=== PATIENT | female | born 1965 | race Hispanic/Latino ===

== ENCOUNTER 2017-10-21 11:17 | Emergency (ER) | payer BC ==
[~2017-10-21] VITALS: Ht 154.9 cm; Wt 104.3 kg
[~2017-10-21 11:17] MED LIST: BUPROPION HCL100 MG PO; METFORMIN HCL500 MG PO; NORCO 7.5-3251 EACH PO; SEROQUEL100 MG PO; TYLENOL EXTRA500 MG PO; clonazepam PO; cymbalta PO
--- OUTSIDE RECORDS SUMMARY | 2017-10-21 11:20 | XMS REPORT | Clinical Summary ---
Author Author [facility] Address Unknown Phone Unavailable Care Team Providers Care Back Tacker Name Role Phone Lucio Hardin MD PCP Allergies No Known Allergies Current Medications Prescription Sig. Disp. Refills Start End Date Status Date metFORMIN (GLUCOPHAGE) 02/17/20 Active 500 MG tablet 16 traMADol (ULTRAM) 50 mg 02/24/20 Active tablet 16 buPROPion SR (WELLBUTRIN 02/24/20 Active SR) 150 MG 12 hr tablet 16 TRULICITY 1.5 mg/0.5 mL 02/15/20 Active pen injector 16 QUEtiapine (SEROquel) 100 01/16/20 Active MG tablet 16 acetaminophen-codeine Take 1-2 tablets by mouth 15 tablet 0 02/20/20 02/25/20 (TYLENOL WITH CODEINE #3) every 6 (six) hours as 17 17 300-30 mg per tablet needed for moderate pain for up to 5 days. Active Problems Problem Noted Date Sprain of medial collateral ligament of left knee 03/03/2016 Left knee pain 02/25/2016 Encounters Date Type Specialty Care Team Description 10/16/2017 Emergency Emergency Medicine Tremaine Ty Right lower quadrant - Endy Fregoso MD abdominal pain (Primary 10/17/2017 Dx) 02/19/2017 Emergency Emergency Medicine Sreekanth Ron MD Acute bilateral low back pain without sciatica (Primary Dx) after 10/20/2016 Family History Medical History Relation Name Comments Diabetes Father Heart disease Father Diabetes Mother Hyperlipidemia Mother Hypertension Mother Relation Name Status Comments Father Mother Social History Tobacco Use Types Packs/Day Years Used Date Never Smoker Alcohol Use Drinks/Week oz/Week Comments No Sex Assigned at Date Recorded Not on file Last Filed Vital Signs Vital Sign Reading Time Taken Blood Pressure 119/65 10/16/2017 8:32 PM CDT Pulse 82 10/16/2017 8:32 PM CDT Temperature 36.1 C (97 F) 10/16/2017 8:32 PM CDT Respiratory Rate 17 10/16/2017 8:32 PM CDT Oxygen Saturation 100% 10/16/2017 8:32 PM CDT Inhaled Oxygen - - Concentration Weight 83.9 kg (185 lb) 02/19/2017 6:47 PM CDT Height 152.4 cm (5') 10/16/2017 8:32 PM CDT Body Mass Index 36.13 02/19/2017 6:47 PM CDT Plan of Treatment Health Maintenance Due Date Last Done Comments PAP SMEAR 1987 COLONOSCOPY 2016 MAMMOGRAM 2016 INFLUENZA VACCINE 01/31/2018 Results * Urinalysis screen and microscopy, with reflex to culture (10/16/2017 10:24 PM) Only the most recent of 2 results within the time period is included. Component Value Ref Range Specimen site Clean catch Color, UA Straw Appearance, UA Clear Specific gravity, UA 1.003 1.001 - 1.035 pH, UA 6.0 5.0 - 8.5 Protein, UA Negative Negative Glucose, UA Negative Negative Ketones, UA Negative Negative Bilirubin, UA Negative Negative Blood, UA Negative Negative Nitrite, UA Negative Negative Urobilinogen, UA Negative <2.0 Leukocyte esterase, UA Negative Negative Epithelial cells, UA Few /HPF WBC, UA 1 0 - 5 /HPF RBC, UA 3 0 - 5 /HPF Bacteria, UA Trace None seen Yeast, UA None seen Yeast with pseudohyphae, None seen UA Specimen Performing Laboratory Urine [facility] DEPARTMENT OF PATHOLOGY AND GENOMIC MEDICINE [address] [place] [address] * hCG qualitative, urine screen (10/16/2017 10:24 PM) Component Value Ref Range hCG qualitative, urine Negative Negative Comment: The manufacturers stated sensitivity of HcG test for serum is >/=10 mIU/ml and urine is >/=20mIU/ml. Specimen Performing Laboratory Urine [facility] DEPARTMENT OF PATHOLOGY AND GENOMIC MEDICINE [address] [place] [address] * Estimated GFR (10/16/2017 9:05 PM) Only the most recent of 2 results within the time period is included. Component Value Ref Range GFR Non Af Amer 66 mL/min/1.73 m2 GFR Af Amer 80 mL/min/1.73 m2 Comment: Chronic kidney disease: <60 mL/min/1.73m2 Kidney failure: <15 mL/min/1.73m2 The estimated GFR is calculated from the IDMS-traceable Modification of Diet in Renal Disease Equation. The accuracy of the calculation is poor when the creatinine is normal. Calculated values >90 mL/min/1.73m2 are not reported. This equation has not been validated in children (<18 years), women, the elderly (>70 years), or ethnic groups other than Caucasians and Americans. Specimen Performing Laboratory Plasma specimen [facility] DEPARTMENT OF PATHOLOGY AND GENOMIC MEDICINE [address] [place] [address] * CBC with platelet and differential (10/16/2017 9:05 PM) Only the most recent of 2 results within the time period is included. Component Value Ref Range WBC 7.0 4.2 - 11.0 k/uL RBC 3.77 (L) 4.04 - 5.86 m/uL HGB 9.9 (L) 11.5 - 15.3 g/dL HCT 31.2 (L) 34.0 - 45.0 % MCV 82.8 80.0 - 98.0 fL MCH 26.3 (L) 27.0 - 34.0 pg MCHC 31.7 31.5 - 36.5 g/dL RDW - SD 40.4 37.0 - 51.0 fL MPV 9.0 7.4 - 10.4 fL Platelet count 321 150 - 400 k/uL Nucleated RBC 0.00 /100 WBC Neutrophils 62.0 36.0 - 66.0 % Lymphocytes 29.1 24.0 - 44.0 % Monocytes 5.2 0.0 - 6.0 % Eosinophils 2.2 0.0 - 6.0 % Basophils 0.9 0.0 - 1.2 % Immature granulocytes 0.6 0.0 - 1.0 % Specimen Performing Laboratory Blood [facility] DEPARTMENT OF PATHOLOGY AND GENOMIC MEDICINE [address] [place] [address] * Lipase level (10/16/2017 9:05 PM) Component Value Ref Range Lipase 270 (H) 65 - 230 U/L Specimen Performing Laboratory Plasma specimen [facility] DEPARTMENT OF PATHOLOGY AND GENOMIC MEDICINE [address] [place] [address] * Comprehensive metabolic panel (10/16/2017 9:05 PM) Only the most recent of 2 results within the time period is included. Component Value Ref Range Sodium 133 (L) 135 - 150 mEq/L Potassium 4.6 3.5 - 5.0 mEq/L Chloride 96 (L) 100 - 109 mEq/L CO2 28 24 - 32 mmol/L Anion gap 9 7 - 15 mEq/L Comment: Starting from October , anion gap calculation no longer incorporates potassium. Please note the change. BUN 15 7 - 18 mg/dL Creatinine 0.9 0.8 - 1.5 mg/dL Glucose 91 65 - 100 mg/dL Calcium 9.3 8.6 - 10.7 mg/dL Protein 7.6 6.3 - 8.2 g/dL Albumin 3.6 3.2 - 5.0 g/dL A/G ratio 0.9 0.7 - 3.8 Alkaline phosphatase 123 (H) 30 - 120 U/L AST 25 15 - 37 U/L ALT 34 30 - 65 U/L Total bilirubin 0.4 0.2 - 1.2 mg/dL Specimen Performing Laboratory Plasma specimen [facility] DEPARTMENT OF PATHOLOGY AND GENOMIC MEDICINE [address] [place] [address] * CT Abdomen Pelvis Wo Contrast (02/19/2017 8:16 PM) Specimen Performing Laboratory [address] [address] Narrative EXAMINATION:CT ABDOMEN PELVIS WO CONTRAST CLINICAL HISTORY:back paindysuria TECHNIQUE: Multiple axial images of the abdomen and pelvis were obtained without intravenous administration of iodinated contrast. Sagittal and coronal computerized reformatted images were also obtained. The lack of intravenous contrast reduces the sensitivity of detecting solid organ disease.CT imaging was performed with iterative reconstruction technique and/or automated exposure control to reduce radiation dose. COMPARISON:None. FINDINGS: Abdomen: Calcified right lower lung granuloma is seen. The liver, pancreas, spleen, and adrenals are normal in appearance. There is a horseshoe kidney. Patient is status post cholecystectomy. Anastomotic sutures in bowel are seen in the left upper quadrant. Postoperative changes are seen in the proximal stomach. Pelvis: The bladder is distended. No enlarged pelvic lymph node is seen. Appendix is within normal limits. IMPRESSION: No definite acute process identified. Horseshoe kidney. Postoperative changes. [facility]-[id number] Procedure Note Hm Interface, Radiology Results Incoming - 02/19/2017 8:22 PM CDT EXAMINATION: CT ABDOMEN PELVIS WO CONTRAST CLINICAL HISTORY: back pain dysuria TECHNIQUE: Multiple axial images of the abdomen and pelvis were obtained without intravenous administration of iodinated contrast. Sagittal and coronal computerized reformatted images were also obtained. The lack of intravenous contrast reduces the sensitivity of detecting solid organ disease.CT imaging was performed with iterative reconstruction technique and/or automated exposure control to reduce radiation dose. COMPARISON: None. FINDINGS: Abdomen: Calcified right lower lung granuloma is seen. The liver, pancreas, spleen, and adrenals are normal in appearance. There is a horseshoe kidney. Patient is status post cholecystectomy. Anastomotic sutures in bowel are seen in the left upper quadrant. Postoperative changes are seen in the proximal stomach. Pelvis: The bladder is distended. No enlarged pelvic lymph node is seen. Appendix is within normal limits. IMPRESSION: No definite acute process identified. Horseshoe kidney. Postoperative changes. [facility]-[id number] after 10/20/2016 Insurance Payer Benefit Subscriber ID Type Phone Address Plan / Group BCBS DUNCAN xxxxxxxxxxxxxx O [facility] Home:
[2017-10-21] MEDS ORDERED: KETOROLAC TROMETHAMINE 60 MG/2 ML VIAL IM ONE (12:30)
--- NOTE | 2017-10-21 12:30 | Diagnostic Imaging Report ---
EXAMINATION: ABDOMEN ACUTE SERIES W/PA CXR INDICATION: Abdominal pain COMPARISON: Chest x-ray 08/01/2012 FINDINGS: TUBES and LINES: None. LUNGS: Lungs are well inflated. Lungs are clear. There is no evidence of pneumonia or pulmonary edema. PLEURA: No pleural effusion or pneumothorax. HEART AND MEDIASTINUM: The cardiomediastinal silhouette is unremarkable. BONES AND SOFT TISSUES: No acute osseous lesion. Anterior cervical fusion plate. Soft tissues are unremarkable. ABDOMEN: No free air under the diaphragm. There are cholecystectomy clips. Positive oral contrast within the transverse colon extending to the rectum. Moderate amount of stool. IMPRESSION: 1. No acute thoracic abnormality. 2. Moderate stool within the colon with positive oral contrast and transverse colon extending to the rectum. Signed by: Dr. Anthony Ha M.D. on 10/21/2017 12:27 PM
[2017-10-21] MEDS ORDERED: LIBRAX CAPSULE1 EACH PO (13:29)
[2017-10-21] MEDS ORDERED: GOLYTELY SOLU4000 ML PO (13:29)
== END 2017-10-21 14:12 | disposition home or self-care (01) ==
LOC: ER 11:17
DX: R10.84 Generalized abdominal pain (principal); K59.00 Constipation, unspecified
CPT/HCPCS: 74022; 99283; J1885

== ENCOUNTER 2018-12-25 11:56 | Inpatient (IN) | payer BC ==
[~2018-12-25] VITALS: Ht 152.4 cm; Wt 96.3 kg
[~2018-12-25 11:56] MED LIST changes: +GOLYTELY SOLU4000 ML PO; +LIBRAX CAPSULE1 EACH PO
--- OUTSIDE RECORDS SUMMARY | 2018-12-25 12:00 | XMS REPORT | Clinical Summary ---
Author Author [facility] Address Unknown Phone Unavailable Care Team Providers Care Yard Inspector Name Role Phone Raymundo Hardin MD PCP Allergies No Known Allergies Medications End Date Status Medication Sig Dispensed Refills Start Date Active metFORMIN (GLUCOPHAGE) 0 500 MG tablet 6 Active traMADol (ULTRAM) 50 mg 0 tablet 6 Active buPROPion SR (WELLBUTRIN 0 SR) 150 MG 12 hr tablet 6 Active TRULICITY 1.5 mg/0.5 mL 0 pen injector 6 Active QUEtiapine (SEROquel) 100 0 MG tablet 6 Active Problems Problem Noted Date Sprain of medial collateral ligament of left knee 03/03/2016 Left knee pain 02/25/2016 Family History Medical History Relation Name Comments Diabetes Father Heart disease Father Diabetes Mother Hyperlipidemia Mother Hypertension Mother Relation Name Status Comments Father Mother Social History Date Tobacco Use Types Packs/Day Years Used Never Smoker Alcohol Use Drinks/Week oz/Week Comments No Sex Assigned at Date Recorded Not on file Industry Job Start Date Occupation Not on file Not on file Not on file Travel End Travel History Travel Start No recent travel history available. Last Filed Vital Signs Not on file Plan of Treatment Health Maintenance Due Date Last Done Comments BREAST CANCER SCREENING 2016 COLONOSCOPY SCREENING 2016 SHINGLES VACCINES (#1) 2016 INFLUENZA VACCINE 01/31/2019 Results Not on fileafter 12/24/2017 Insurance Type Payer Benefit Subscriber ID Effective Phone Address Plan / Dates Group PPO BCBS ANTHEM xxxxxxxxxxxxxx 2015-P [address] (Home) [place] [address] Advance Directives Patient has advance care planning documents on file. For more information, jessica busby contact: Smooth Jaramillo [address] [place] [address]
--- OUTSIDE RECORDS SUMMARY | 2018-12-25 12:01 | XMS REPORT ---
Author Author [facility] Address Unknown Phone Unavailable Care Team Providers Care Flat Folder Name Role Phone mAy TURNER Unavailable Unavailable Problems This patient has no known problems. Allergies, Adverse Reactions, Alerts This patient has no known allergies or adverse reactions. Medications This patient has no known medications. Results Test Description Test Time Test Comments Text Results Atomic Results Result Comments ABDOMEN ACUTE SERIES W/PA CXR [place] [address] Patient Name: BRENDA COCHRAN MR #: [id number] : 1965 Age/Sex: 52/F Req #: [id number] Adm Physician: Ordered by: ZAID TURNER MD Report #: [id number] Location: ER Room/Bed: Procedure: [id number] DX/ABDOMEN ACUTE SERIES W/PA CXR Exam Date: 10/21/17 Exam Time: 1155 REPORT STATUS: Signed EXAMINATION: ABDOMEN ACUTE SERIES W/PA CXR INDICATION: Abdominal pain COMPARISON: Chest x-ray 08/01/2012 FINDINGS: TUBES and LINES: None. LUNGS: Lungs are well inflated. Lungs are clear. There is no evidence of pneumonia or pulmonary edema. PLEURA: No pleural effusion or pneumothorax. HEART AND MEDIASTINUM: The cardiomediastinal silhouette is unremarkable. BONES AND SOFT TISSUES: No acute osseous lesion. Anterior cervical fusion plate. Soft tissues are unremarkable. ABDOMEN: No free air under the diaphragm. There are cholecystectomy clips. Positive oral contrast within the transverse colon extending to the rectum. Moderate amount of stool. IMPRESSION: 1. No acute thoracic abnormality. 2. Moderate stool within the colon with positive oral contrast and transverse colon extending to the rectum. Signed by: Dr. Misael White M.D. on 10/21/2017 12:27 PM Dictated By: MISAEL WHITE MD [id number] Transcribed By: LOGAN on 10/21/17 1227 COPY TO: ZAID TURNER MD
--- NOTE | 2018-12-25 12:06 | NUR ---
RCD PT DIRECT ADMISSION BY WHEEL CHAIR PT IS ALERT AND ORIENTED VITALS CHECKED PT C/O PAIN ON LEFT SIDE OF ABDOMEN SHE HAD BOWEL MOVEMENT TODAY ,IV STARTED ON RT AC WIT 20 G ,ADMISSION ASSESSMENT AND HISTORY AND FAMILY HISTORY DONE INSTRUCTED PT REGARDING HOSPITAL POLICY AND ROUTINE BED LOW AND LOCKED CALL LIGHT IN REACH
[2018-12-25 12:32] VITALS: BP 122/56
[2018-12-25 12:42] LABS: BASOPHILS % 0.8 % (0.0-1.0); EOSINOPHILS # (AUTO) 0.1 (0.0-0.4); EOSINOPHILS % 1.5 % (0.0-6.0); HEMATOCRIT 31.7 % (34.2-44.1); HEMOGLOBIN 10.1 g/dL (12.0-16.0); LYMPHOCYTES # (AUTO) 1.1 (1.0-3.2); LYMPHOCYTES % 20.6 % (18.0-39.1); MEAN CORPUSCULAR HEMOGLOBIN 25.8 pg (28-32); MEAN CORPUSCULAR HGB CONC 31.9 g/dL (31-35); MEAN CORPUSCULAR VOLUME 81.1 fL (81-99); MONOCYTES # (AUTO) 0.2 (0.2-0.8); NEUTROPHILS # (AUTO) 3.8 (2.1-6.9); NEUTROPHILS % 72.5 % (38.7-80.0); PLATELET COUNT 244 x10e3/uL (140-360); RED BLOOD COUNT 3.91 x10e6/uL (3.6-5.1); RED CELL DISTRIBUTION WIDTH 15.2 % (11.7-14.4)
[2018-12-25 13:10] LABS: ALANINE AMINOTRANSFERASE 55 IU/L (0-55); ALBUMIN 3.4 g/dL (3.5-5.0); ALBUMIN/GLOBULIN RATIO 1.3 (0.8-2.0); ALKALINE PHOSPHATASE 80 IU/L (40-150); BLOOD UREA NITROGEN 10 mg/dL (7-26); BUN/CREATININE RATIO 13 (6-25); CALCIUM 8.7 mg/dL (8.4-10.2); CARBON DIOXIDE 24 mmol/L (22-29); CREATININE, SERUM 0.77 mg/dL (0.57-1.11); EST GLOMERULAR FILTRATION RATE > 60 ML/MIN (60-); GLUCOSE 180 mg/dL (74-118)
[2018-12-25] MEDS: CEFEPIME 1GM/NS 0.9% 50 ML 50 ML IV SCH ×2 (13:11→21:00)
[2018-12-25] MEDS: SODIUM CHLORIDE 0.45% 1,000 ML IV SCH (13:11)
--- NOTE | 2018-12-25 13:21 | NUR ---
PT C/O PAIN ON ABDOMEN PAGED DR GAINES AND TALKED VELIA EXTRUSION PRESS SUPERVISOR GOT NEW ORDERS
[2018-12-25] MEDS: MORPHINE SULFATE INJ 4 MG/ML INJ 1ML IV PRN ×2 (13:33→20:17)
[2018-12-25 13:43] LABS: ANION GAP 12.9 mmol/L (8-16); CHLORIDE 105 mmol/L (98-107); POTASSIUM 3.9 mmol/L (3.5-5.1); SODIUM 137 mmol/L (136-145)
[2018-12-25] MEDS: METRONIDAZOLE 500MG/NS 100ML 100 ML IV SCH ×2 (14:00→21:30)
[2018-12-25] MEDS ORDERED: METRONIDAZOLE 500 MG TAB PO SCH (14:00)
[2018-12-25] MEDS ORDERED: CEFEPIME HCL 1 GM VIAL IV SCH (14:00)
[2018-12-25 14:38] VITALS: BP 122/56
[2018-12-25 14:49] VITALS: BP 122/56
[2018-12-25] MEDS ORDERED: DEXTROSE 50% SYRINGE 50 ML IV PRN (15:45)
[2018-12-25] MEDS: INSULIN REGULAR, HUMAN 100 UNIT/1 ML 3ML VIAL SQ SCH ×2 (16:30→20:03)
[2018-12-25] MEDS: FAMOTIDINE 20 MG TAB PO SCH (16:30)
[2018-12-25 16:33] VITALS: BP 114/57
[2018-12-25] MEDS ORDERED: ACETAMINOPHEN 325 MG TAB PO PRN (16:45)
[2018-12-25] MEDS ORDERED: HYDRALAZINE HCL 20 MG/ML VIAL IV PRN (16:45)
--- NOTE | 2018-12-25 17:00 | NUR ---
SCDS ON BOTH LEGS
--- NOTE | 2018-12-25 17:03 | NUR ---
RADIOLOGY REQUESTED TO XRAY ABDOMEN AND PELVIS FOR MORE CLARITY PAGED AND TALKED JESSENIA MANRIQUE GOT THE ORDER
[2018-12-25 17:10] LABS: BILIRUBIN,URINE NEGATIVE (NEGATIVE); CLARITY,URINE CLEAR (CLEAR); COLOR,URINE YELLOW (YELLOW); KETONES,URINE NEGATIVE (NEGATIVE); LEUKOCYTE ESTERASE ,URINE NEGATIVE (NEGATIVE); NITRITE,URINE NEGATIVE (NEGATIVE); PROTEIN,URINE DIPSTICK NEGATIVE (NEGATIVE); URINE UROBILINOGEN 0.2 mg/dL (0.2 - 1)
[2018-12-25 17:28] LABS: BACTERIA,URINE MODERATE /HPF; EPITHELIAL CELLS,URINE FEW /LPF
[2018-12-25] MEDS ORDERED: DIATRIZOATE MEGL/DIATRIZOA SOD 30 ML BTL PO ONE (17:35)
--- NOTE | 2018-12-25 18:52 | NUR ---
PT RESTING ON BED BED SIDE REPORT GIVEN TO ONCOMING NURSE
--- NOTE | 2018-12-25 18:54 | Diagnostic Imaging Report ---
EXAM: CT Abdomen and Pelvis WITH contrast December 25, 2018 INDICATION: Diverticulitis. Abdominal pain. COMPARISON: None. TECHNIQUE: Abdomen and pelvis were scanned utilizing a multidetector helical scanner from the lung base to the pubic symphysis after administration of IV contrast. Coronal and sagittal reformations were obtained. Routine protocol was performed. Scan was performed when during portal venous phase. IV CONTRAST: 100 mL of Isovue-370 ORAL CONTRAST: Gastrografin RADIATION DOSE: Total DLP: 664.8 mGy*cm Estimated effective dose: (DLP x 0.015 x size factor) mSv Dose modulation, iterative reconstruction and weight base adjustment of the MA/KV was utilized to reduce the patient dose to as low as reasonably achievable COMPLICATIONS: None FINDINGS: LINES and TUBES: None. LOWER THORAX: Unremarkable HEPATOBILIARY: No focal hepatic lesions. No biliary ductal dilation. GALLBLADDER: Cholecystectomy SPLEEN: No splenomegaly. PANCREAS: No focal masses or ductal dilatation. ADRENALS: No adrenal nodules KIDNEYS/URETERS: Horseshoe kidney. No hydronephrosis. No cystic or solid mass lesions. No stones. GI TRACT: No abnormal distention, wall thickening, or evidence of bowel obstruction. Scattered diverticulosis without evidence of diverticulitis. Postsurgical change to the stomach. PELVIC ORGANS/BLADDER: Unremarkable. LYMPH NODES: No lymphadenopathy. VESSELS: Unremarkable. PERITONEUM / RETROPERITONEUM: No free air or fluid. BONES: Scattered degenerative changes most pronounced at the lower lumbar spine. SOFT TISSUES: Unremarkable. IMPRESSION: 1. Scattered diverticulosis without evidence of diverticulitis. 2. Incidental horseshoe kidney. Signed by: Dr. Rohan Rivers M.D. on 12/25/2018 6:51 PM
--- NOTE | 2018-12-25 19:30 | NUR ---
RECEIVED PATIENT. PATIENT IS RESTING IN BED, AAOX3. RESP EVEN AND UNLABORED. NO ACUTE DISTRESS NOTED. PATIENT C/O PAIN TO LLQ, WILL MEDICATE PER MAR. FLUID IS INFUSING. FAMILY AT BED SIDE. CALL LIGHT WITHIN REACH. BED LOW/LOCKED. CONTINUE TO MONITOR CLOSELY
[2018-12-25] MEDS ORDERED: SODIUM CHLORIDE 0.9% 50ML 50 ML ONE (19:57)
[2018-12-25] MEDS ORDERED: IOPAMIDOL 370 MG/ML 200 ML INFUS..BTL INJ ONE (19:57)
[2018-12-25] MEDS: QUETIAPINE FUMARATE 100 MG TAB PO SCH (20:16)
[2018-12-25] MEDS: ONDANSETRON HCL INJ 2MG/ML 2ML 2 MG/ML VIAL IV PRN (20:17)
[2018-12-25 20:19] VITALS: BP 109/55
[2018-12-25 20:30] VITALS: BP 109/55
--- NOTE | 2018-12-25 21:35 | NUR ---
PATIENT C/O PAIN TO RIGHT AC IV. D/C IV. START NEW IV TO RIGHT FOREARM 20G. PATIENT TOLERATED WELL
[2018-12-26] VITALS (9 sets, daily range): BP systolic 93–119; BP diastolic 50–60
[2018-12-26] MEDS: SODIUM CHLORIDE 0.45% 1,000 ML IV SCH ×2 (02:01→14:00)
[2018-12-26] MEDS: MORPHINE SULFATE INJ 4 MG/ML INJ 1ML IV PRN ×4 (03:49→22:59)
[2018-12-26] MEDS: CEFEPIME 1GM/NS 0.9% 50 ML 50 ML IV SCH ×3 (05:00→22:46)
[2018-12-26 05:26] LABS: BASOPHILS % 0.9 % (0.0-1.0); EOSINOPHILS # (AUTO) 0.1 (0.0-0.4); EOSINOPHILS % 3.7 % (0.0-6.0); HEMATOCRIT 30.4 % (34.2-44.1); HEMOGLOBIN 9.4 g/dL (12.0-16.0); LYMPHOCYTES # (AUTO) 1.5 (1.0-3.2); LYMPHOCYTES % 45.1 % (18.0-39.1); MEAN CORPUSCULAR HEMOGLOBIN 25.3 pg (28-32); MEAN CORPUSCULAR HGB CONC 30.9 g/dL (31-35); MEAN CORPUSCULAR VOLUME 81.9 fL (81-99); MONOCYTES # (AUTO) 0.3 (0.2-0.8); MONOCYTES % 7.9 % (4.4-11.3); NEUTROPHILS # (AUTO) 1.4 (2.1-6.9); NEUTROPHILS % 42.1 % (38.7-80.0); PLATELET COUNT 218 x10e3/uL (140-360); RED BLOOD COUNT 3.71 x10e6/uL (3.6-5.1); RED CELL DISTRIBUTION WIDTH 15.1 % (11.7-14.4)
[2018-12-26] MEDS: METRONIDAZOLE 500MG/NS 100ML 100 ML IV SCH ×3 (05:33→22:55)
[2018-12-26 05:43] LABS: BASOPHILS % 1.2 % (0.0-1.0); EOSINOPHILS # (AUTO) 0.1 (0.0-0.4); EOSINOPHILS % 4.1 % (0.0-6.0); HEMATOCRIT 29.9 % (34.2-44.1); HEMOGLOBIN 9.5 g/dL (12.0-16.0); LYMPHOCYTES # (AUTO) 1.5 (1.0-3.2); LYMPHOCYTES % 44.5 % (18.0-39.1); MEAN CORPUSCULAR HEMOGLOBIN 25.6 pg (28-32); MEAN CORPUSCULAR HGB CONC 31.8 g/dL (31-35); MEAN CORPUSCULAR VOLUME 80.6 fL (81-99); MONOCYTES # (AUTO) 0.3 (0.2-0.8); MONOCYTES % 8.7 % (4.4-11.3); NEUTROPHILS # (AUTO) 1.4 (2.1-6.9); NEUTROPHILS % 41.2 % (38.7-80.0); PLATELET COUNT 226 x10e3/uL (140-360); RED BLOOD COUNT 3.71 x10e6/uL (3.6-5.1)
[2018-12-26 05:49] LABS: % IRON SATURATION 21 % (15-50); ALANINE AMINOTRANSFERASE 47 IU/L (0-55); ALBUMIN 3.1 g/dL (3.5-5.0); ALBUMIN/GLOBULIN RATIO 1.4 (0.8-2.0); ALKALINE PHOSPHATASE 70 IU/L (40-150); AMYLASE 62 U/L (25-125); ANION GAP 10.9 mmol/L (8-16); B-TYPE NATRIURETIC PEPTIDE2 57.2 pg/mL (0-100); BLOOD UREA NITROGEN 7 mg/dL (7-26); BUN/CREATININE RATIO 10 (6-25); CALCIUM 8.4 mg/dL (8.4-10.2); CARBON DIOXIDE 26 mmol/L (22-29); CHLORIDE 105 mmol/L (98-107); EST GLOMERULAR FILTRATION RATE > 60 ML/MIN (60-); GLUCOSE 86 mg/dL (74-118); IRON 80 ug/dL (50-170); LIPASE 58 U/L (8-78); POTASSIUM 3.9 mmol/L (3.5-5.1); SODIUM 138 mmol/L (136-145); TOTAL IRON BINDING CAPACITY 389 ug/dL (261-478); TRANSFERRIN 278 mg/dL (180-382)
[2018-12-26 06:36] LABS: MAGNESIUM 2.1 MG/DL (1.3-2.1)
[2018-12-26] MEDS ORDERED: ACETAMINOPHEN/ASPIRIN/CAFFEINE 1 EA TAB PO PRN (06:45)
[2018-12-26 07:04] LABS: FREE T4 (FREE THYROXINE) 0.83 ng/dL (0.8-1.8); THYROID STIMULATING HORMONE 2.307 uIU/mL (0.350-4.940)
[2018-12-26] MEDS: INSULIN REGULAR, HUMAN 100 UNIT/1 ML 3ML VIAL SQ SCH ×4 (07:30→21:00)
[2018-12-26] MEDS: FAMOTIDINE 20 MG TAB PO SCH ×3 (07:30→15:30)
[2018-12-26] MEDS: DULOXETINE HCL 30 MG DELAYED RELEASE PO SCH (08:20)
[2018-12-26] MEDS ORDERED: BUPROPION HCL 100 MG TAB PO SCH (09:00)
--- NOTE | 2018-12-26 18:48 | NUR ---
Resting in bed, side rails upx2, call light within reach. AAOX3 to time, person, place. Respirations even and unlabored.Report to be given to oncoming nurse of patient's status.
[2018-12-26] MEDS: QUETIAPINE FUMARATE 100 MG TAB PO SCH (22:46)
[2018-12-26] MEDS: ONDANSETRON HCL INJ 2MG/ML 2ML 2 MG/ML VIAL IV PRN (22:59)
[2018-12-27] VITALS (8 sets, daily range): BP systolic 83–112; BP diastolic 50–62
--- NOTE | 2018-12-27 00:25 | NUR ---
LOW BP NOTED. PATIENT IS ASYMPTOMATIC. PATIENT STATED SHE'S FEELING FINE, DENIED OF ANY LIGHT HEADACHE OR DIZZINESS. RECHECK BP MANUALLY 100/59
--- NOTE | 2018-12-27 04:45 | NUR ---
NOTIFIED DRUM SANDER VELIA LOW BP. NO NEW ORDER AT THIS TIME
[2018-12-27] MEDS: SODIUM CHLORIDE 0.45% 1,000 ML IV SCH ×2 (05:02→18:33)
[2018-12-27] MEDS: CEFEPIME 1GM/NS 0.9% 50 ML 50 ML IV SCH ×3 (05:03→21:52)
[2018-12-27] MEDS ORDERED: CLONAZEPAM 1 MG TAB PO PRN (05:15)
[2018-12-27 05:45] LABS: EOSINOPHILS # (AUTO) 0.1 (0.0-0.4); EOSINOPHILS % 4.5 % (0.0-6.0); HEMATOCRIT 30.4 % (34.2-44.1); HEMOGLOBIN 9.5 g/dL (12.0-16.0); LYMPHOCYTES # (AUTO) 1.4 (1.0-3.2); LYMPHOCYTES % 48.3 % (18.0-39.1); MEAN CORPUSCULAR HEMOGLOBIN 25.1 pg (28-32); MEAN CORPUSCULAR HGB CONC 31.3 g/dL (31-35); MEAN CORPUSCULAR VOLUME 80.4 fL (81-99); MONOCYTES # (AUTO) 0.3 (0.2-0.8); MONOCYTES % 9.8 % (4.4-11.3); NEUTROPHILS % 36.1 % (38.7-80.0); PLATELET COUNT 207 x10e3/uL (140-360); RED BLOOD COUNT 3.78 x10e6/uL (3.6-5.1); RED CELL DISTRIBUTION WIDTH 14.9 % (11.7-14.4)
[2018-12-27 05:50] LABS: ANION GAP 10.8 mmol/L (8-16); BLOOD UREA NITROGEN 6 mg/dL (7-26); BUN/CREATININE RATIO 9 (6-25); CALCIUM 8.6 mg/dL (8.4-10.2); CARBON DIOXIDE 26 mmol/L (22-29); CHLORIDE 105 mmol/L (98-107); CREATININE, SERUM 0.65 mg/dL (0.57-1.11); EST GLOMERULAR FILTRATION RATE > 60 ML/MIN (60-); GLUCOSE 83 mg/dL (74-118); MAGNESIUM 1.8 MG/DL (1.3-2.1); POTASSIUM 3.8 mmol/L (3.5-5.1); SODIUM 138 mmol/L (136-145)
[2018-12-27] MEDS: PANTOPRAZOLE SOD 40 MG TABEC PO SCH (05:53)
[2018-12-27] MEDS ORDERED: PANTOPRAZOLE SOD 40 MG TABEC PO SCH (06:00)
[2018-12-27] MEDS: METRONIDAZOLE 500MG/NS 100ML 100 ML IV SCH ×3 (06:03→21:06)
[2018-12-27] MEDS: INSULIN REGULAR, HUMAN 100 UNIT/1 ML 3ML VIAL SQ SCH ×4 (07:30→21:00)
[2018-12-27] MEDS: DULOXETINE HCL 30 MG DELAYED RELEASE PO SCH (08:06)
[2018-12-27] MEDS: MORPHINE SULFATE INJ 4 MG/ML INJ 1ML IV PRN ×3 (08:06→21:06)
[2018-12-27] MEDS ORDERED: ONDANSETRON HCL 4 MG ORAL DISINTEGRATING TAB PO PRN (13:45)
--- NOTE | 2018-12-27 19:05 | NUR ---
Report given to oncoming nurse of patient's status. Resting in bed. No s/s of acute distress noted. Side rails upx2, call light within reach, family at bedside.
--- NOTE | 2018-12-27 19:49 | NUR ---
RECEIVED PATIENT. PATIENT IS RESTING IN BED, AAOX3. RESP EVEN AND UNLABORED. NO ACUTE DISTRESS NOTED. DENIES OF ANY PAIN AT THIS TIME. FAMILY AT BED SIDE. CALL LIGHT WITHIN REACH. BED LOW/LOCKED. CONTINUE TO MONITOR CLOSELY
[2018-12-27] MEDS: QUETIAPINE FUMARATE 100 MG TAB PO SCH (21:06)
[2018-12-28] VITALS (8 sets, daily range): BP systolic 93–122; BP diastolic 50–76
[2018-12-28] MEDS: MORPHINE SULFATE INJ 4 MG/ML INJ 1ML IV PRN (03:16)
[2018-12-28 03:56] LABS: BASOPHILS % 0.7 % (0.0-1.0); EOSINOPHILS # (AUTO) 0.2 (0.0-0.4); HEMATOCRIT 29.9 % (34.2-44.1); HEMOGLOBIN 9.5 g/dL (12.0-16.0); LYMPHOCYTES # (AUTO) 1.8 (1.0-3.2); LYMPHOCYTES % 43.1 % (18.0-39.1); MEAN CORPUSCULAR HEMOGLOBIN 25.7 pg (28-32); MEAN CORPUSCULAR HGB CONC 31.8 g/dL (31-35); MEAN CORPUSCULAR VOLUME 80.8 fL (81-99); MONOCYTES # (AUTO) 0.3 (0.2-0.8); MONOCYTES % 7.8 % (4.4-11.3); NEUTROPHILS # (AUTO) 1.9 (2.1-6.9); NEUTROPHILS % 43.9 % (38.7-80.0); PLATELET COUNT 216 x10e3/uL (140-360); RED CELL DISTRIBUTION WIDTH 14.7 % (11.7-14.4)
[2018-12-28 04:14] LABS: ANION GAP 11.9 mmol/L (8-16); BLOOD UREA NITROGEN 10 mg/dL (7-26); BUN/CREATININE RATIO 14 (6-25); CALCIUM 8.4 mg/dL (8.4-10.2); CARBON DIOXIDE 25 mmol/L (22-29); CHLORIDE 107 mmol/L (98-107); CREATININE, SERUM 0.72 mg/dL (0.57-1.11); EST GLOMERULAR FILTRATION RATE > 60 ML/MIN (60-); GLUCOSE 92 mg/dL (74-118); POTASSIUM 3.9 mmol/L (3.5-5.1); SODIUM 140 mmol/L (136-145)
[2018-12-28] MEDS ORDERED: MORPHINE SULFATE INJ 4 MG/ML INJ 1ML IV PRN (04:15)
[2018-12-28] MEDS: CEFEPIME 1GM/NS 0.9% 50 ML 50 ML IV SCH ×3 (05:13→21:10)
[2018-12-28] MEDS: METRONIDAZOLE 500MG/NS 100ML 100 ML IV SCH ×3 (05:52→21:30)
[2018-12-28] MEDS: INSULIN REGULAR, HUMAN 100 UNIT/1 ML 3ML VIAL SQ SCH ×4 (07:30→21:00)
[2018-12-28] MEDS: DULOXETINE HCL 30 MG DELAYED RELEASE PO SCH (08:18)
[2018-12-28] MEDS: PANTOPRAZOLE SOD 40 MG TABEC PO SCH (08:18)
[2018-12-28] MEDS: SODIUM CHLORIDE 0.45% 1,000 ML IV SCH ×2 (08:27→21:09)
[2018-12-28] MEDS: HYDROCODONE/APAP 5MG-325MG TAB PO PRN ×3 (08:36→21:10)
[2018-12-28] MEDS: QUETIAPINE FUMARATE 100 MG TAB PO SCH (21:09)
[2018-12-29] VITALS (9 sets, daily range): BP systolic 88–133; BP diastolic 50–60
[2018-12-29] MEDS: HYDROCODONE/APAP 5MG-325MG TAB PO PRN ×4 (01:53→21:49)
[2018-12-29] MEDS: CEFEPIME 1GM/NS 0.9% 50 ML 50 ML IV SCH ×3 (05:26→22:30)
[2018-12-29 05:33] LABS: BASOPHILS % 1.1 % (0.0-1.0); EOSINOPHILS # (AUTO) 0.2 (0.0-0.4); EOSINOPHILS % 4.7 % (0.0-6.0); HEMATOCRIT 31.1 % (34.2-44.1); HEMOGLOBIN 9.6 g/dL (12.0-16.0); LYMPHOCYTES # (AUTO) 1.7 (1.0-3.2); LYMPHOCYTES % 43.7 % (18.0-39.1); MEAN CORPUSCULAR HEMOGLOBIN 25.5 pg (28-32); MEAN CORPUSCULAR HGB CONC 30.9 g/dL (31-35); MEAN CORPUSCULAR VOLUME 82.5 fL (81-99); MONOCYTES # (AUTO) 0.3 (0.2-0.8); MONOCYTES % 8.4 % (4.4-11.3); NEUTROPHILS # (AUTO) 1.6 (2.1-6.9); NEUTROPHILS % 41.6 % (38.7-80.0); PLATELET COUNT 213 x10e3/uL (140-360); RED BLOOD COUNT 3.77 x10e6/uL (3.6-5.1); RED CELL DISTRIBUTION WIDTH 14.7 % (11.7-14.4)
[2018-12-29] MEDS ORDERED: ASCORBIC ACID500 MG PO (05:45)
[2018-12-29] MEDS ORDERED: FLAGYL500 MG PO (05:45)
[2018-12-29] MEDS ORDERED: CEFDINIR300 MG PO (05:45)
[2018-12-29] MEDS ORDERED: FERROUS SULFAT325 MG PO (05:45)
[2018-12-29] MEDS ORDERED: TYLENOL # 31 EA PEG (05:45)
[2018-12-29 05:53] LABS: ANION GAP 10.1 mmol/L (8-16); BLOOD UREA NITROGEN 7 mg/dL (7-26); BUN/CREATININE RATIO 10 (6-25); CALCIUM 8.5 mg/dL (8.4-10.2); CARBON DIOXIDE 27 mmol/L (22-29); CHLORIDE 107 mmol/L (98-107); CREATININE, SERUM 0.73 mg/dL (0.57-1.11); EST GLOMERULAR FILTRATION RATE > 60 ML/MIN (60-); GLUCOSE 86 mg/dL (74-118); POTASSIUM 4.1 mmol/L (3.5-5.1); SODIUM 140 mmol/L (136-145)
[2018-12-29] MEDS: METRONIDAZOLE 500MG/NS 100ML 100 ML IV SCH ×3 (06:05→21:50)
[2018-12-29] MEDS: INSULIN REGULAR, HUMAN 100 UNIT/1 ML 3ML VIAL SQ SCH ×4 (07:30→21:00)
[2018-12-29] MEDS: FERROUS SULFATE 325 MG TAB PO SCH ×2 (08:09→16:11)
[2018-12-29] MEDS: PANTOPRAZOLE SOD 40 MG TABEC PO SCH (08:09)
[2018-12-29] MEDS: ASCORBIC ACID 500 MG TAB PO SCH ×2 (08:10→16:11)
[2018-12-29] MEDS: DULOXETINE HCL 30 MG DELAYED RELEASE PO SCH (08:10)
[2018-12-29] MEDS: SODIUM CHLORIDE 0.45% 1,000 ML IV SCH (13:00)
[2018-12-29] MEDS: QUETIAPINE FUMARATE 100 MG TAB PO SCH (21:50)
--- NOTE | 2018-12-29 21:50 | NUR ---
PATIENT C/O PAIN TO THE LEFT SIDE OF THE ABDOMEN WITH PAIN SCORE #8, MEDICATED WITH NORCO 1TAB ORDERED. CALL LIGHT WITHIN EASY REACH, SHE'S INSTRUCTED TO CALL FOR ASSISTANCE UPON GETTING OUT OF THE BED. PRIMARY NURSE MADE AWARE THAT THE PATIENT WAS MEDICATED FOR PAIN.
[2018-12-30 00:06] VITALS: BP 89/50
[2018-12-30] MEDS: SODIUM CHLORIDE 0.45% 1,000 ML IV SCH (02:14)
[2018-12-30] MEDS: HYDROCODONE/APAP 5MG-325MG TAB PO PRN (04:22)
[2018-12-30 04:40] VITALS: BP 111/53
[2018-12-30 04:43] LABS: BASOPHILS % 0.7 % (0.0-1.0); EOSINOPHILS # (AUTO) 0.2 (0.0-0.4); EOSINOPHILS % 3.5 % (0.0-6.0); HEMATOCRIT 31.1 % (34.2-44.1); HEMOGLOBIN 9.8 g/dL (12.0-16.0); LYMPHOCYTES # (AUTO) 1.6 (1.0-3.2); LYMPHOCYTES % 35.9 % (18.0-39.1); MEAN CORPUSCULAR HEMOGLOBIN 25.9 pg (28-32); MEAN CORPUSCULAR HGB CONC 31.5 g/dL (31-35); MEAN CORPUSCULAR VOLUME 82.1 fL (81-99); MONOCYTES # (AUTO) 0.3 (0.2-0.8); MONOCYTES % 7.4 % (4.4-11.3); NEUTROPHILS # (AUTO) 2.3 (2.1-6.9); PLATELET COUNT 216 x10e3/uL (140-360); RED BLOOD COUNT 3.79 x10e6/uL (3.6-5.1); RED CELL DISTRIBUTION WIDTH 14.8 % (11.7-14.4)
[2018-12-30 04:59] LABS: ANION GAP 12.2 mmol/L (8-16); BLOOD UREA NITROGEN 8 mg/dL (7-26); BUN/CREATININE RATIO 12 (6-25); CALCIUM 8.7 mg/dL (8.4-10.2); CARBON DIOXIDE 24 mmol/L (22-29); CHLORIDE 110 mmol/L (98-107); CREATININE, SERUM 0.69 mg/dL (0.57-1.11); EST GLOMERULAR FILTRATION RATE > 60 ML/MIN (60-); GLUCOSE 89 mg/dL (74-118); MAGNESIUM 1.6 MG/DL (1.3-2.1); POTASSIUM 4.2 mmol/L (3.5-5.1); SODIUM 142 mmol/L (136-145)
[2018-12-30] MEDS: CEFEPIME 1GM/NS 0.9% 50 ML 50 ML IV SCH (05:28)
[2018-12-30] MEDS: METRONIDAZOLE 500MG/NS 100ML 100 ML IV SCH (06:30)
--- NOTE | 2018-12-30 07:10 | NUR ---
RCD PT AT BED PT IS ALERT AND ORIENTED PT RESTING ON BED NO SIGNS OF ANY DISTRESS NOTED IV PATENT BED LOW AND LOCKED CALL LIGHT IN REACH
[2018-12-30] MEDS: INSULIN REGULAR, HUMAN 100 UNIT/1 ML 3ML VIAL SQ SCH (07:30)
[2018-12-30] MEDS: PANTOPRAZOLE SOD 40 MG TABEC PO SCH (07:30)
[2018-12-30 07:53] VITALS: BP 110/55
[2018-12-30] MEDS: FERROUS SULFATE 325 MG TAB PO SCH (08:00)
[2018-12-30 08:33] VITALS: BP 110/55
[2018-12-30] MEDS: DULOXETINE HCL 30 MG DELAYED RELEASE PO SCH (09:00)
[2018-12-30] MEDS: ASCORBIC ACID 500 MG TAB PO SCH (09:00)
--- NOTE | 2018-12-30 10:16 | NUR ---
PT WENT HOME IN SAFE CONDITIONS WITH HER DAUGHTER
--- NOTE | 2018-12-31 13:07 | Discharge Summary ---
ADMISSION DIAGNOSES: Acute diverticulitis, microcytic anemia, type 2 diabetes, bipolar. DISCHARGE DIAGNOSES: Acute diverticulitis, microcytic anemia, type 2 diabetes, bipolar. HISTORY: The patient has a history of anemia type 2 diabetes, bipolar, depression, arthritis with chronic pain and IBS. SURGICAL HISTORY: The patient had a lumbar laminectomy, gastric bypass, cholecystectomy, . FAMILY HISTORY: Bipolar, CAD, and type 2 diabetes. SOCIAL HISTORY: Noncontributory. HOSPITAL COURSE: A 53-year-old female with left lower quadrant abdominal pain for several days, not responding to Cipro and Flagyl outpatient. On admission, the patient had a CT of the abdomen that showed scattered diverticulosis without evidence of diverticulitis, incidental horseshoe kidney. Urine culture was negative. Clostridium difficile stool was negative. Stool culture was sent, but pending at the time of discharge. After getting a couple days of IV cefepime and Flagyl, the patient is feeling much better. We initially tried to advance the diet, but the patient was unable to tolerate it, so we had to go back to full liquids and advance the diet slower than originally planned. At the time of discharge, the patient is tolerating a regular diet. No longer having abdominal pain or diarrhea. She will follow up with primary care in 1 to 2 weeks. Vital signs stable. The patient is afebrile. Dictated by Ivanna Leary NP MD CYNDEE Bradford/MODL /[id number]
[2019-03-11] MEDS ORDERED: VITAMIN B12-FO1 EACH (08:11)
[2019-03-11] MEDS ORDERED: VITAMIN D400 UNIT PO (08:11)
[2019-03-11] MEDS ORDERED: VITAMIN (08:11)
[2019-03-14] MEDS ORDERED: CALCIUM CARBON500 MG PO (09:05)
== END 2018-12-30 10:16 | disposition home or self-care (01) | DRG 392 ==
LOC: MED/SURG2 11:56
PROVIDERS: ADMIT Internal Medicine; ATTEND Internal Medicine
DX: K57.92 Diverticulitis of intestine, part unspecified, without perforation or abscess without bleeding (principal); D50.9 Iron deficiency anemia, unspecified; E11.9 Type 2 diabetes mellitus without complications; F31.9 Bipolar disorder, unspecified; M19.90 Unspecified osteoarthritis, unspecified site; G89.29 Other chronic pain; K58.9 Irritable bowel syndrome, unspecified; Z98.84 Bariatric surgery status; K21.9 Gastro-esophageal reflux disease without esophagitis; G47.00 Insomnia, unspecified; Q63.1 Lobulated, fused and horseshoe kidney; Z79.84 Long term (current) use of oral hypoglycemic drugs
CPT/HCPCS: 36415; 74177; 80048; 80053; 81001; 82150; 82948; 83036; 83540; 83690; 83735; 83880; 84439; 84443; 84466; 85025; 87045; 87086; 87493; J0692; J2270; J2405; Q9967

== ENCOUNTER 2019-02-25 16:51 | Emergency (ER) | payer BC ==
[~2019-02-25] VITALS: Ht 154.9 cm; Wt 96.2 kg
[~2019-02-25 16:51] MED LIST changes: +ASCORBIC ACID500 MG PO; +CEFDINIR300 MG PO; +FERROUS SULFAT325 MG PO; +FLAGYL500 MG PO; +TYLENOL # 31 EA PEG
[2019-02-25] MEDS ORDERED: SODIUM CHLORIDE 0.9% 1000ML 1,000 ML IV STA (17:10)
[2019-02-25] MEDS ORDERED: MORPHINE SULFATE INJ 4 MG/ML INJ 1ML IV STA (17:10)
[2019-02-25] MEDS ORDERED: ONDANSETRON HCL INJ 2MG/ML 2ML 2 MG/ML VIAL IV STA (17:10)
[2019-02-25 17:23] LABS: BASOPHILS % 0.7 % (0.0-1.0); BILIRUBIN,URINE NEGATIVE (NEGATIVE); CLARITY,URINE CLEAR (CLEAR); COLOR,URINE YELLOW (YELLOW); EOSINOPHILS # (AUTO) 0.1 (0.0-0.4); EOSINOPHILS % 1.2 % (0.0-6.0); HEMOGLOBIN 10.8 g/dL (12.0-16.0); KETONES,URINE NEGATIVE (NEGATIVE); LEUKOCYTE ESTERASE ,URINE TRACE (NEGATIVE); LYMPHOCYTES # (AUTO) 1.8 (1.0-3.2); LYMPHOCYTES % 31.5 % (18.0-39.1); MEAN CORPUSCULAR HEMOGLOBIN 25.7 pg (28-32); MEAN CORPUSCULAR HGB CONC 31.8 g/dL (31-35); MEAN CORPUSCULAR VOLUME 80.8 fL (81-99); MONOCYTES # (AUTO) 0.3 (0.2-0.8); MONOCYTES % 5.9 % (4.4-11.3); NEUTROPHILS # (AUTO) 3.4 (2.1-6.9); NITRITE,URINE NEGATIVE (NEGATIVE); PLATELET COUNT 240 x10e3/uL (140-360); PROTEIN,URINE DIPSTICK NEGATIVE (NEGATIVE); RED BLOOD COUNT 4.21 x10e6/uL (3.6-5.1); RED CELL DISTRIBUTION WIDTH 14.6 % (11.7-14.4); URINE UROBILINOGEN 0.2 mg/dL (0.2 - 1)
[2019-02-25 17:37] LABS: ALANINE AMINOTRANSFERASE 28 IU/L (0-55); ALBUMIN/GLOBULIN RATIO 1.4 (0.8-2.0); ALKALINE PHOSPHATASE 117 IU/L (40-150); ANION GAP 15.7 mmol/L (8-16); BLOOD UREA NITROGEN 10 mg/dL (7-26); BUN/CREATININE RATIO 14 (6-25); CALCIUM 9.6 mg/dL (8.4-10.2); CARBON DIOXIDE 24 mmol/L (22-29); CHLORIDE 100 mmol/L (98-107); CREATININE, SERUM 0.74 mg/dL (0.57-1.11); EST GLOMERULAR FILTRATION RATE > 60 ML/MIN (60-); GLUCOSE 89 mg/dL (74-118); LIPASE 78 U/L (8-78); POTASSIUM 3.7 mmol/L (3.5-5.1); SODIUM 136 mmol/L (136-145)
[2019-02-25 17:39] LABS: EPITHELIAL CELLS,URINE MODERATE /LPF; WBC,URINE (MAN) 0-5 /HPF (0-5)
--- OUTSIDE RECORDS SUMMARY | 2019-02-25 18:22 | XMS REPORT | Clinical Summary ---
Author Author [facility] Address Unknown Phone Unavailable Care Team Providers Care Research Laboratory Manager Name Role Phone Raymundo Hardin MD PCP [...] Use Types Packs/Day Years Used Never Smoker Drinks/Week oz/Week Comments Alcohol Use No Sex Assigned at Date Recorded Not on file Industry Job Start Date Occupation Not on file Not on file Not on file Travel End Travel History Travel Start No recent travel history available. Last Filed Vital Signs Not on file Plan of Treatment Health Maintenance Due Date Last Done Comments CERVICAL CANCER SCREENING 1987 BREAST CANCER SCREENING 2016 COLONOSCOPY SCREENING 2016 SHINGLES VACCINES (#1) 2016 INFLUENZA VACCINE 01/31/2019 Results Not on fileafter 02/24/2018 Insurance Type Payer Benefit Subscriber ID Effective Phone Address Plan / Dates Group PPO BCBS ANTHEM xxxxxxxxxxxxxx 2015-P BLUE CROSS resent Advance Directives For more information, please contact: [phone] Patient Mallet Cutter Explanation Type Date Recorded Advance Directives, 02/19/2016 10:11 PM Living Will and Medical Power of Instrument Assembler Advance Directives, 02/19/2017 7:58 PM Living Will and Medical Power of Instrument Assembler
--- OUTSIDE RECORDS SUMMARY | 2019-02-25 18:22 | XMS REPORT | Continuity of Care Document ---
Author Author [employer] Address Unknown Phone Unavailable Care Team Providers Care Clearance Coordinator Name Role Phone [facility] Unavailable Unavailable Problems No Data Provided for This Section Medications Medication Details Route Status Patient Instructions Ordering Provider Order Date Source Ascorbic Acid 500 Mg Tablet Twice A Day Active [place] 12/29/2018 [facility] Cefdinir (Omnicef) 300 Mg Capsule Twice A Day Active [place] 12/29/2018 [facility] Ferrous Sulfate 325 Mg Tablet Twice Daily With Meals Active [place] 12/29/2018 [facility] Metronidazole (Flagyl) 500 Mg Tablet Three Times A Day Active [place] 12/29/2018 [facility] Acetaminophen (Tylenol Extra Strength) 500 Mg Tablet, 500 Mg Oral As Needed Active 11/06/2014 [facility] Clonazepam , 0.1 Mg Oral Bedtime Active 11/06/2014 [facility] Cymbalta , 60 Mg Oral Twice A Day Active 11/06/2014 [facility] Bupropion Hcl 100 Mg Tablet Daily Active [facility] Chlordiazepoxide/Clidinium Br (Librax Capsule) 1 Each Capsule Every 8 Hours as needed for Abdominal Pain Active [facility] Hydrocodone Bit/Acetaminophen ([place]uslia 7.5-325 Tablet) 1 Each Tablet As Needed Active [facility] Metformin Hcl 500 Mg Tablet Twice A Day Active [facility] Peg 3350/Na Sulf,Bicarb,Cl/Kcl (Golytely Solution) 4,000 Ml Soln.recon Q79-70DWMH as needed for Constipation Active [facility] Quetiapine Fumarate (Seroquel) 100 Mg Tablet Bedtime Active [facility] Allergies, Adverse Reactions, Alerts Substance Category Reaction Severity Reaction type Status Date Reported Comments Source No Known Drug Allergies Allergy to Substance Active 08/03/2012 [facility] Immunizations No Data Provided for This Section Results Order Name Results Value Reference Range Date Interpretation Comments Source Capillary blood glucose measurement by glucometer (mass/volume) 87 70 - 120 12/30/2018 [facility] Blood leukocytes automated count (number/volume) 4.32 4.8 - 10.8 12/30/2018 [facility] Blood erythrocytes automated count (number/volume) 3.79 3.6 - 5.1 12/30/2018 [facility] Blood hemoglobin measurement (moles/volume) 9.8 12.0 - 16.0 12/30/2018 [facility] Automated blood hematocrit (volume fraction) 31.1 34.2 - 44.1 12/30/2018 [facility] Automated erythrocyte mean corpuscular volume 82.1 81 - 99 12/30/2018 [facility] Automated erythrocyte mean corpuscular hemoglobin (mass per erythrocyte) 25.9 28 - 32 12/30/2018 [facility] Automated erythrocyte mean corpuscular hemoglobin concentration measurement (mass/volume) 31.5 31 - 35 12/30/2018 [facility] RDW BldCo-Rto 14.8 11.7 - 14.4 12/30/2018 [facility] Automated blood platelet count (count/volume) 216 140 - 360 12/30/2018 [facility] Automated blood segmented neutrophil count as percentage of total leukocytes 52.0 38.7 - 80.0 12/30/2018 [facility] Automated blood lymphocyte count as percentage ot total leukocytes 35.9 18.0 - 39.1 12/30/2018 [facility] Automated blood monocyte count as percentage of total leukocytes 7.4 4.4 - 11.3 12/30/2018 [facility] Automated blood eosinophil count as percentage of total leukocytes 3.5 0.0 - 6.0 12/30/2018 [facility] Automated blood basophil count as percentage of total leukocytes 0.7 0.0 - 1.0 12/30/2018 [facility] IM GRANULOCYTES % 0.5 0.0 - 1.0 12/30/2018 [facility] Automated blood neutrophil count 2.3 2.1 - 6.9 12/30/2018 [facility] Blood lymphocytes count (number/volume) 1.6 1.0 - 3.2 12/30/2018 [facility] Blood monocytes automated count (number/volume) 0.3 0.2 - 0.8 12/30/2018 [facility] Automated blood eosinophil count 0.2 0.0 - 0.4 12/30/2018 [facility] Automated blood basophil count (count/volume) 0.0 0.0 - 0.1 12/30/2018 [facility] Absolute Immature Granulocyte (auto 0.02 0 - 0.1 12/30/2018 [facility] Serum or plasma sodium measurement (moles/volume) 142 136 - 145 12/30/2018 [facility] Serum or plasma potassium measurement (moles/volume) 4.2 3.5 - 5.1 12/30/2018 [facility] Serum or plasma chloride measurement (moles/volume) 110 98 - 107 12/30/2018 [facility] Serum or plasma carbon dioxide, total measurement (moles/volume) 24 22 - 29 12/30/2018 [facility] Serum or plasma anion gap 12.2 8 - 16 12/30/2018 [facility] Serum or plasma urea nitrogen measurement (mass/volume) 8 7 - 26 12/30/2018 [facility] Serum or plasma creatinine measurement (mass/volume) 0.69 0.57 - 1.11 12/30/2018 [facility] Serum or plasma urea nitrogen/creatinine mass ratio 12 6 - 25 12/30/2018 [facility] Estimated glomerular filtration rate (GFR) determination > 60 60 12/30/2018 [facility] Glucose measurement 89 74 - 118 12/30/2018 [facility] Serum or plasma calcium measurement (mass/volume) 8.7 8.4 - 10.2 12/30/2018 [facility] Serum or plasma magnesium measurement (mass/volume) 1.6 1.3 - 2.1 12/30/2018 [facility] BNP Bld-mCnc 21.7 0 - 100 12/29/2018 [facility] Clostridium difficile A and B toxin assay NEGATIVE NEGATIVE 12/28/2018 [facility] Hemoglobin A1c Percent 5.5 4.0 - 7.0 12/26/2018 [facility] Serum or plasma iron measurement (mass/volume) 80 50 - 170 12/26/2018 [facility] Serum or plasma iron binding capacity measurement (mass/volume) 389 261 - 478 12/26/2018 [facility] Serum or plasma iron saturation measurement (mass fraction) 21 15 - 50 12/26/2018 [facility] Serum or plasma transferrin measurement (mass/volume) 278 180 - 382 12/26/2018 [facility] Serum or plasma total bilirubin measurement (mass/volume) 0.4 0.2 - 1.2 12/26/2018 [facility] Aspartate Amino Transf (AST/SGOT) 35 5 - 34 12/26/2018 [facility] Serum or plasma alanine aminotransferase measurement (enzymatic activity/volume) 47 0 - 55 12/26/2018 [facility] Serum or plasma protein measurement (mass/volume) 5.3 6.5 - 8.1 12/26/2018 [facility] Serum or plasma albumin measurement (mass/volume) 3.1 3.5 - 5.0 12/26/2018 [facility] Plasma globulin measurement (mass/volume) 2.2 2.3 - 3.5 12/26/2018 [facility] Serum or plasma albumin/globulin mass ratio 1.4 0.8 - 2.0 12/26/2018 [facility] Serum or plasma alkaline phosphatase measurement (enzymatic activity/volume) 70 40 - 150 12/26/2018 [facility] Serum or plasma amylase measurement (enzymatic activity/volume) 62 25 - 125 12/26/2018 [facility] Serum or plasma lipase measurement (enzymatic activity/volume) 58 8 - 78 12/26/2018 [facility] Serum or plasma thyroxine (T4) free measurement (mass/volume) 0.83 0.8 - 1.8 12/26/2018 [facility] Serum or plasma thyrotropin measurement by detection limit <=0.005 miu/l (units/volume) 2.307 0.350 - 4.940 12/26/2018 [facility] Urine color determination YELLOW YELLOW 12/25/2018 [facility] Urine clarity CLEAR CLEAR 12/25/2018 [facility] Specific gravity of Urine by Test strip <=1.005 1.010 - 1.025 12/25/2018 [facility] Urine pH measurement by automated test strip 7 5 - 7 12/25/2018 [facility] Urine leukocyte esterase detection by automated test strip NEGATIVE NEGATIVE 12/25/2018 [facility] Urine nitrite detection by automated test strip NEGATIVE NEGATIVE 12/25/2018 [facility] Urine protein detection by automated test strip NEGATIVE NEGATIVE 12/25/2018 [facility] Urine glucose detection by automated test strip NEGATIVE NEGATIVE 12/25/2018 [facility] Urine ketones detection by automated test strip NEGATIVE NEGATIVE 12/25/2018 [facility] Urine urobilinogen measurement by test strip (mass/volume) 0.2 0.2 - 1 12/25/2018 [facility] Urine total bilirubin detection NEGATIVE NEGATIVE 12/25/2018 [facility] Urine erythrocytes detection NEGATIVE NEGATIVE 12/25/2018 [facility] Automated urine sediment leukocyte count by microscopy (number/high power field) NONE 0 - 5 12/25/2018 [facility] Erythrocytes detection in urine sediment by light microscopy NONE 0 - 5 12/25/2018 [facility] Bacteria detection in urine sediment by light microscopy MODERATE NONE 12/25/2018 [facility] Epithelial cells detection in urine sediment by light microscopy FEW NONE 12/25/2018 [facility] Pathology Reports No Data Provided for This Section Diagnostic Reports No Data Provided for This Section Consultation Notes No Data Provided for This Section Discharge Summaries No Data Provided for This Section History and Physicals No Data Provided for This Section Vital Signs No Data Provided for This Section Encounters Location Location Details Encounter Type Encounter Number Reason For Visit Attending Provider ADM Date DC Date Status Source Discharged Inpatient [id number] WILFRED GAINES MD 12/25/2018 12/30/2018 [facility] Procedures Procedure Code Date Perfomer Comments Source Computed tomography of abdomen and pelvis with contrast [id number] 12/25/2018 [facility] Assessment and Plan No Data Provided for This Section Plan of Care Plan of Care Date Source Discharge Date 12/30/18 10:16am Disposition HOME, SELF-CARE Instructions/Education Provided Diverticulitis Prescriptions See Medication Section Additional Instructions/Education F/U WITH PCP IN 1-2 WEEKS,SOFT DIET ACTIVITY TOLERATED 12/30/2018 [facility] Social History Social History Date Source Social History Problem Response Recorded Date/Time Onset Date Status Hx Psychiatric Problems No 08/02/2012 7:18pm Not Applicable Not Applicable 12/30/2018 [facility] Family History No Data Provided for This Section Advance Directives Order Name Results Value Date Source Advance Directives Advance Directives Directive Response Recorded Date/Time Does the patient have an advance directive? No 12/25/18 2:39pm If yes, is advance directive on file with [facility]? No 03/01/11 5:58pm If not on file with [facility] will patient provide a copy? No 03/01/11 5:58pm Do you have a Directive to Physician? No 12/25/18 11:54am Do you have a Medical Power of [employer] Developer? No 12/25/18 11:54am Do you have an out of hospital Do Not Resuscitate Order? No 12/25/18 11:54am Do you have any special needs we should be aware of? No 12/25/18 11:54am Do you have a support person here with you today? No 12/25/18 11:54am Did patient receive Notice of Privacy Practices? Yes 12/25/18 11:54am Did patient receive patient rights and responsibilities? Yes 12/25/18 11:54am 12/30/2018 [facility] Functional Status No Data Provided for This Section
--- NOTE | 2019-02-25 18:58 | Diagnostic Imaging Report ---
CT Abdomen and Pelvis without contrast INDICATION: Right flank pain, history of stones and diverticulitis TECHNIQUE: Thin collimation axial images obtained from the diaphragm to the level of the pubic symphysis without nonionic intravenous contrast. Dose reduction techniques used: Automated exposure control, adjustment of the mAs and/or kVp according to patient size, standardized low-dose protocol, and/or iterative reconstruction technique. RADIATION DOSE: Total DLP: 692.46 mGy*cm Estimated effective dose: (DLP x 0.015 x size factor) mSv CTDIvol has been reviewed. It is below the limits set by the Radiation Protocol Committee (RPC). COMPARISON: CT abdomen/pelvis 12/25/2018. ABDOMEN FINDINGS: Lung Bases: Pleural-based calcification in the lateral aspect of the right lower lobe measures 3 mm. This was not visible on previous exam due to differences in slice selection. The visualized portion of the mediastinum is normal. Liver: Normal in attenuation without mass. Gallbladder: Absent. No ductal dilatation. Pancreas: Mild fatty atrophy. No mass or ductal dilatation. Spleen: Normal size without mass. Adrenal Glands: No evidence for mass. 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 No cortical mass or hydronephrosis Lymph Nodes: No enlarged abdominal or retroperitoneal lymph nodes.. Aorta: Normal in diameter. 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 The excluded stomach is collapsed. Small Bowel: Stable postoperative changes from enteroenterostomy. No dilatation or inflammation the small bowel mesentery. Large Bowel: Mild to moderate burden of stool. Mild burden of diverticulosis coli. No dilatation. No pericolonic inflammation Appendix: Normal. Bladder: Normal. Ureters: No ureteral dilatation or calculus. The uterus is present and normal in morphology. No adnexal mass. Peritoneum/retroperitoneum: No free fluid or fluid collection. Bones: Stable degenerative changes at L4-5. No new osseous findings. Soft tissues: Unremarkable. IMPRESSION: 1. Stable postoperative changes of the stomach and bowel. 2. Mild burden of diverticulosis coli. No evidence for bowel obstruction or inflammation. Normal appendix. 3. Horseshoe kidney. No evidence of renal calculus or obstructive uropathy. Signed by: Dr. Ria Norman MD on 02/25/2019 6:54 PM
[2019-02-25 20:29] VITALS: BP 115/66
[2019-03-11] MEDS ORDERED: VITAMIN D400 UNIT PO (08:11)
[2019-03-11] MEDS ORDERED: VITAMIN B12-FO1 EACH (08:11)
[2019-03-11] MEDS ORDERED: VITAMIN (08:11)
[2019-03-14] MEDS ORDERED: CALCIUM CARBON500 MG PO (09:05)
== END 2019-02-25 20:41 | disposition home or self-care (01) ==
LOC: ER 16:51
DX: R10.31 Right lower quadrant pain (principal); R19.7 Diarrhea, unspecified; K57.31 Diverticulosis of large intestine without perforation or abscess with bleeding; D64.9 Anemia, unspecified; K21.9 Gastro-esophageal reflux disease without esophagitis; F41.9 Anxiety disorder, unspecified; F31.9 Bipolar disorder, unspecified
CPT/HCPCS: 36415; 74176; 80053; 81001; 82948; 83690; 85025; 99284; J2270; J2405; J7030

== ENCOUNTER → 2019-03-14 | Day surgery (SDC) | payer BC ==
[~2019-03-14] MED LIST changes: +CALCIUM CARBON500 MG PO; +FENTANYL CITRATE/PF 100MCG/2 ML INJ ONE; +GLUCAGON FOR INJ 1 MG VIAL ONE; +HYOSCYAMINE 0.125 MG TAB ONE; +MIDAZOLAM HCL 2 MG/2 ML VIAL ONE; +PROPOFOL IV EMULSION 10 MG/ML 50 ML VIAL ONE; +VITAMIN; +VITAMIN B12-FO1 EACH; +VITAMIN D400 UNIT PO
--- OUTSIDE RECORDS SUMMARY | 2019-03-14 08:30 | XMS REPORT | Clinical Summary ---
Author Author [employer] Organization [employer] Address Unknown Phone Unavailable Care Team Providers Care Radio Frequency Technician Name Role Phone Raymundo Hardin MD PCP [...] (SEROquel) 100 0 MG tablet 6 Active acetaminophen-codeine 0 (TYLENOL WITH CODEINE #3) 9 300-30 mg per tablet Active clonAZEPAM (KlonoPIN) 0.5 0 MG tablet 9 Active VICTOZA 3-TEVIN 0.6 mg/0.1 0 mL (18 mg/3 mL) pen 9 injector Active Problems Problem Noted Date Greater trochanteric bursitis, right 03/06/2019 Sprain of medial collateral ligament of left knee 03/03/2016 Left knee pain 02/25/2016 Encounters Care Team Description Date Type Specialty Carlton Boston MD Greater trochanteric bursitis, right (Primary Dx); Right hip pain 03/06/2019 Office Visit Orthopedic Surgery after 03/13/2018 Family History Medical History Relation Name Comments Diabetes Father Heart disease Father Diabetes Mother Hyperlipidemia Mother Hypertension Mother Relation Name Status Comments Father Mother Social History Date Tobacco Use Types Packs/Day Years Used Never Smoker Smokeless Tobacco: Never Used Drinks/Week oz/Week Comments Alcohol Use No Sex Assigned at Date Recorded Not on file Industry Job Start Date Occupation Not on file Not on file Not on file Travel End Travel History Travel Start No recent travel history available. Last Filed Vital Signs Reading Time Taken Comments Vital Sign - - Blood Pressure - - Pulse - - Temperature - - Respiratory Rate - - Oxygen Saturation - - Inhaled Oxygen Concentration 89.4 kg (197 lb) 03/06/2019 4:07 PM CDT Weight 152.4 cm (5') 03/06/2019 4:07 PM CDT Height 38.47 03/06/2019 4:07 PM CDT Body Mass Index Plan of Treatment Health Maintenance Due Date Last Done Comments CERVICAL CANCER SCREENING 1987 BREAST CANCER SCREENING 2016 COLONOSCOPY SCREENING 2016 SHINGLES VACCINES (#1) 2016 INFLUENZA VACCINE 01/31/2019 Procedures Comments Procedure Name Priority Date/Time Associated Diagnosis XR HIP 2-3 VIEWS RIGHT Routine 03/06/2019 Right hip pain 4:16 PM CDT AK ARTHROCENTESIS Routine 03/06/2019 Greater trochanteric ASPIR&/INJ MAJOR JT/BURSA 4:00 PM CDT bursitis, right W/O US after 03/13/2018 Results * XR Hip 2-3 View Right (03/06/2019 4:16 PM CDT) Specimen Narrative Performed At [facility] pelvis with groin lateral of the right hip: There is no significant arthropathy noted and I am seeing no fractures Performing Organization Address City/State/Zipcode Phone Number [facility] [address] [place] [address] * Large Joint Arthrocentesis: hip, R greater trochanteric bursa (03/06/2019 4:00 PM CDT) Narrative Performed At Carlton Boston MD 03/06/20194:39 PM Large Joint Arthrocentesis: hip, R greater trochanteric bursa Consent given by: patient Supporting Documentation Indications: pain Procedure Details Location: hip - R greater trochanteric bursa Right side: Needle size: 22 G Approach: lateral Right hip medications administered: 80 mg methylPREDNISolone acetate 80 mg/mL; 3 mL lidocaine 10 mg/mL (1 %) after 03/13/2018 Insurance Type Payer Benefit Subscriber ID Effective Phone Address Plan / Dates Group PPO BCBS ANTHEM xxxxxxxxxxxxxx [id number] BLUE CROSS resent Advance Directives For more information, please contact: [phone] Patient South Asian History Professor Explanation Type Date Recorded Advance Directives, 02/19/2016 10:11 PM Living Will and Medical Power of Show Host/Hostess Advance Directives, 02/19/2017 7:58 PM Living Will and Medical Power of Show Host/Hostess
--- OUTSIDE RECORDS SUMMARY | 2019-03-14 08:30 | XMS REPORT | Continuity of Care Document ---
Author Author [facility] Address Unknown Phone Unavailable Care Team Providers Care Wool Brusher Name Role Phone [facility] Unavailable Unavailable Problems No Data Provided for This Section Medications Medication Details Route Status Patient Instructions Ordering Provider Order Date Source Ascorbic Acid 500 Mg Tablet Twice A Day Active [place] 12/29/2018 [facility] Cefdinir (Omnicef) 300 Mg Capsule Twice A Day Active [place] 12/29/2018 [facility] Ferrous Sulfate 325 Mg Tablet Twice Daily With Meals Active [place] 12/29/2018 [facility] Metronidazole (Flagyl) 500 Mg Tablet Three Times A Day Active [place] 12/29/2018 [facility] Acetaminophen (Tylenol Extra Strength) 500 Mg Tablet, 500 Mg Oral As Needed Active 11/06/2014 [facility] Clonazepam , 0.1 Mg Oral Bedtime Active 11/06/2014 [facility] Cymbalta , 60 Mg Oral Twice A Day Active 11/06/2014 [facility] Bupropion Hcl 100 Mg Tablet Daily Active [facility] Chlordiazepoxide/Clidinium Br (Librax Capsule) 1 Each Capsule Every 8 Hours as needed for Abdominal Pain Active [facility] Hydrocodone Bit/Acetaminophen (Delmar 7.5-325 Tablet) 1 Each Tablet As Needed Active [facility] Metformin Hcl 500 Mg Tablet Twice A Day Active [facility] Peg 3350/Na Sulf,Bicarb,Cl/Kcl (Golytely Solution) 4,000 Ml Soln.recon [id number] as needed for Constipation Active [facility] Quetiapine Fumarate (Seroquel) 100 Mg Tablet Bedtime Active [facility] Allergies, Adverse Reactions, Alerts Substance Category Reaction Severity Reaction type Status Date Reported Comments Source No Known Drug Allergies Allergy to Substance Active 08/03/2012 [facility] Immunizations No Data Provided for This Section Results Order Name Results Value Reference Range Date Interpretation Comments Source Capillary blood glucose measurement by glucometer (mass/volume) 87 70 - 120 12/30/2018 [facility] Blood leukocytes automated count (number/volume) 4.32 4.8 - 10.8 12/30/2018 [facility] Blood erythrocytes automated count (number/volume) 3.79 3.6 - 5.1 12/30/2018 [facility] Blood hemoglobin measurement (moles/volume) 9.8 12.0 - 16.0 12/30/2018 [facility] Automated blood hematocrit (volume fraction) 31.1 34.2 - 44.1 12/30/2018 [facility] Automated erythrocyte mean corpuscular volume 82.1 81 - 99 12/30/2018 [facility] Automated erythrocyte mean corpuscular hemoglobin (mass per erythrocyte) 25.9 28 - 32 12/30/2018 [facility] Automated erythrocyte mean corpuscular hemoglobin concentration measurement (mass/volume) 31.5 31 - 35 12/30/2018 [facility] RDW BldCo-Rto 14.8 11.7 - 14.4 12/30/2018 [facility] Automated blood platelet count (count/volume) 216 140 - 360 12/30/2018 [facility] Automated blood segmented neutrophil count as percentage of total leukocytes 52.0 38.7 - 80.0 12/30/2018 [facility] Automated blood lymphocyte count as percentage ot total leukocytes 35.9 18.0 - 39.1 12/30/2018 [facility] Automated blood monocyte count as percentage of total leukocytes 7.4 4.4 - 11.3 12/30/2018 [facility] Automated blood eosinophil count as percentage of total leukocytes 3.5 0.0 - 6.0 12/30/2018 [facility] Automated blood basophil count as percentage of total leukocytes 0.7 0.0 - 1.0 12/30/2018 [facility] IM GRANULOCYTES % 0.5 0.0 - 1.0 12/30/2018 [facility] Automated blood neutrophil count 2.3 2.1 - 6.9 12/30/2018 [facility] Blood lymphocytes count (number/volume) 1.6 1.0 - 3.2 12/30/2018 [facility] Blood monocytes automated count (number/volume) 0.3 0.2 - 0.8 12/30/2018 [facility] Automated blood eosinophil count 0.2 0.0 - 0.4 12/30/2018 [facility] Automated blood basophil count (count/volume) 0.0 0.0 - 0.1 12/30/2018 [facility] Absolute Immature Granulocyte (auto 0.02 0 - 0.1 12/30/2018 [facility] Serum or plasma sodium measurement (moles/volume) 142 136 - 145 12/30/2018 [facility] Serum or plasma potassium measurement (moles/volume) 4.2 3.5 - 5.1 12/30/2018 [facility] Serum or plasma chloride measurement (moles/volume) 110 98 - 107 12/30/2018 [facility] Serum or plasma carbon dioxide, total measurement (moles/volume) 24 22 - 29 12/30/2018 [facility] Serum or plasma anion gap 12.2 8 - 16 12/30/2018 [facility] Serum or plasma urea nitrogen measurement (mass/volume) 8 7 - 26 12/30/2018 [facility] Serum or plasma creatinine measurement (mass/volume) 0.69 0.57 - 1.11 12/30/2018 [facility] Serum or plasma urea nitrogen/creatinine mass ratio 12 6 - 25 12/30/2018 [facility] Estimated glomerular filtration rate (GFR) determination > 60 60 12/30/2018 [facility] Glucose measurement 89 74 - 118 12/30/2018 [facility] Serum or plasma calcium measurement (mass/volume) 8.7 8.4 - 10.2 12/30/2018 [facility] Serum or plasma magnesium measurement (mass/volume) 1.6 1.3 - 2.1 12/30/2018 [facility] BNP Bld-mCnc 21.7 0 - 100 12/29/2018 [facility] Clostridium difficile A and B toxin assay NEGATIVE NEGATIVE 12/28/2018 [facility] Hemoglobin A1c Percent 5.5 4.0 - 7.0 12/26/2018 [facility] Serum or plasma iron measurement (mass/volume) 80 50 - 170 12/26/2018 [facility] Serum or plasma iron binding capacity measurement (mass/volume) 389 261 - 478 12/26/2018 [facility] Serum or plasma iron saturation measurement (mass fraction) 21 15 - 50 12/26/2018 [facility] Serum or plasma transferrin measurement (mass/volume) 278 180 - 382 12/26/2018 [facility] Serum or plasma total bilirubin measurement (mass/volume) 0.4 0.2 - 1.2 12/26/2018 [facility] Aspartate Amino Transf (AST/SGOT) 35 5 - 34 12/26/2018 [facility] Serum or plasma alanine aminotransferase measurement (enzymatic activity/volume) 47 0 - 55 12/26/2018 [facility] Serum or plasma protein measurement (mass/volume) 5.3 6.5 - 8.1 12/26/2018 [facility] Serum or plasma albumin measurement (mass/volume) 3.1 3.5 - 5.0 12/26/2018 [facility] Plasma globulin measurement (mass/volume) 2.2 2.3 - 3.5 12/26/2018 [facility] Serum or plasma albumin/globulin mass ratio 1.4 0.8 - 2.0 12/26/2018 [facility] Serum or plasma alkaline phosphatase measurement (enzymatic activity/volume) 70 40 - 150 12/26/2018 [facility] Serum or plasma amylase measurement (enzymatic activity/volume) 62 25 - 125 12/26/2018 [facility] Serum or plasma lipase measurement (enzymatic activity/volume) 58 8 - 78 12/26/2018 [facility] Serum or plasma thyroxine (T4) free measurement (mass/volume) 0.83 0.8 - 1.8 12/26/2018 [facility] Serum or plasma thyrotropin measurement by detection limit <=0.005 miu/l (units/volume) 2.307 0.350 - 4.940 12/26/2018 [facility] Urine color determination YELLOW YELLOW 12/25/2018 [facility] Urine clarity CLEAR CLEAR 12/25/2018 [facility] Specific gravity of Urine by Test strip <=1.005 1.010 - 1.025 12/25/2018 [facility] Urine pH measurement by automated test strip 7 5 - 7 12/25/2018 [facility] Urine leukocyte esterase detection by automated test strip NEGATIVE NEGATIVE 12/25/2018 [facility] Urine nitrite detection by automated test strip NEGATIVE NEGATIVE 12/25/2018 [facility] Urine protein detection by automated test strip NEGATIVE NEGATIVE 12/25/2018 [facility] Urine glucose detection by automated test strip NEGATIVE NEGATIVE 12/25/2018 [facility] Urine ketones detection by automated test strip NEGATIVE NEGATIVE 12/25/2018 [facility] Urine urobilinogen measurement by test strip (mass/volume) 0.2 0.2 - 1 12/25/2018 [facility] Urine total bilirubin detection NEGATIVE NEGATIVE 12/25/2018 [facility] Urine erythrocytes detection NEGATIVE NEGATIVE 12/25/2018 [facility] Automated urine sediment leukocyte count by microscopy (number/high power field) NONE 0 - 5 12/25/2018 [facility] Erythrocytes detection in urine sediment by light microscopy NONE 0 - 5 12/25/2018 [facility] Bacteria detection in urine sediment by light microscopy MODERATE NONE 12/25/2018 [facility] Epithelial cells detection in urine sediment by light microscopy FEW NONE 12/25/2018 [facility] Pathology Reports No Data Provided for This [...] Date DC Date Status Source Discharged Inpatient [id number] WILFRED GAINES MD 12/25/2018 12/30/2018 [facility] Procedures Procedure Code Date Perfomer Comments Source Computed tomography of abdomen and pelvis with contrast [id number] 12/25/2018 [facility] Assessment and Plan No Data Provided for This Section Plan of Care Plan of Care Date Source Discharge Date 12/30/18 10:16am Disposition HOME, SELF-CARE Instructions/Education Provided Diverticulitis Prescriptions See Medication Section Additional Instructions/Education F/U WITH PCP IN 1-2 WEEKS,SOFT DIET ACTIVITY TOLERATED 12/30/2018 [facility] Social History Social History Date Source Social History Problem Response Recorded Date/Time Onset Date Status Hx Psychiatric Problems No 08/02/2012 7:18pm Not Applicable Not Applicable 12/30/2018 [facility] Family History No Data Provided for This Section Advance Directives Order Name Results Value Date Source Advance Directives Advance Directives Directive Response Recorded Date/Time Does the patient have an advance directive? No 12/25/18 2:39pm If yes, is advance directive on file with [facility]? No 03/01/11 5:58pm If not on file with [facility] will patient provide a copy? No 03/01/11 5:58pm Do you have a Directive to Physician? No 12/25/18 11:54am Do you have a Medical Power of Attendance Clerk? No 12/25/18 11:54am Do you have an [...] rights and responsibilities? Yes 12/25/18 11:54am 12/30/2018 [facility] Functional Status No Data Provided for This Section
[2019-03-14 12:55] VITALS: BP 124/75
--- NOTE | 2019-03-14 18:28 | Operative Report ---
DATE OF PROCEDURE: 03/14/2019 SURGEON: Dusty Meadows MD PROCEDURES: EGD and a colonoscopy. INDICATIONS FOR EGD: History of dark stools, history of gastric ulcer. INDICATIONS FOR COLONOSCOPY: Colorectal cancer screening. MEDICATIONS: The patient was done under MAC, please see anesthesiologist's note. PROCEDURE IN DETAIL: With the patient in left lateral decubitus position, a flexible fiberoptic Olympus gastroscope was introduced into the esophagus under direct visualization without any difficulty. The esophagus appeared to be within normal limits. The scope was then advanced with ease into the stomach and the patient is status post Ivan-en-Y. Anastomosis was intact. There were no marginal ulcers. Efferent loop was patent. The scope was then withdrawn and the patient tolerated the procedure well. IMPRESSION: 1. Normal esophagus. 2. Status post Ivan-en-Y. Anastomosis intact. No marginal ulcers. Efferent loop patent. PLAN: The patient was then turned around and after adequate lubrication of the anal canal, the flexible fiberoptic Olympus colonoscope was inserted into the rectum and advanced all the way to the cecum. Prep was poor primarily in the left colon with [id number] amount of retained fecal material. The cecum, ascending colon, and the transverse colon grossly appeared to be within normal limits. Whatever was visualized the mucosa overlying the descending, sigmoid, and rectum appeared to be within normal limits. The scope was then retroflexed into the distal rectum and small internal hemorrhoids were noted, none of which was actively bleeding. The scope was then straightened out, it was subsequently withdrawn, and the patient tolerated the procedure well. IMPRESSION: 1. Poor prep, primarily left colon. 2. Internal hemorrhoids, none actively bleeding. The patient will need a repeat colonoscopy after a better prep. Dusty Meadows MD [facility] [place] /[id number] cc: Raymundo Hardin
== END | disposition home or self-care (01) ==
LOC: OR 08:28
PROVIDERS: ATTEND Internal Medicine Gastroenterology
DX: K59.00 Constipation, unspecified (principal); K57.92 Diverticulitis of intestine, part unspecified, without perforation or abscess without bleeding; K64.8 Other hemorrhoids; K58.9 Irritable bowel syndrome, unspecified; K44.9 Diaphragmatic hernia without obstruction or gangrene; K21.9 Gastro-esophageal reflux disease without esophagitis; Z98.84 Bariatric surgery status; E11.9 Type 2 diabetes mellitus without complications; F31.9 Bipolar disorder, unspecified; F41.9 Anxiety disorder, unspecified; Z01.810 Encounter for preprocedural cardiovascular examination; Z79.84 Long term (current) use of oral hypoglycemic drugs; Z68.38 Body mass index [BMI] 38.0-38.9, adult
CPT/HCPCS: 36415; 43235; 45378; 82948; 93005; J1610; J2250; J2704; J3010

== ENCOUNTER 2019-08-01 12:33 | Observation (INO) | payer BC ==
[~2019-08-01] VITALS: Ht 152.4 cm; Wt 89.8 kg
[~2019-08-01 12:33] MED LIST changes: -FENTANYL CITRATE/PF 100MCG/2 ML INJ ONE; -GLUCAGON FOR INJ 1 MG VIAL ONE; -HYOSCYAMINE 0.125 MG TAB ONE; -MIDAZOLAM HCL 2 MG/2 ML VIAL ONE; -PROPOFOL IV EMULSION 10 MG/ML 50 ML VIAL ONE
[2019-08-01] MEDS ORDERED: SODIUM CHLORIDE 0.9% 1000ML 1,000 ML IV STA ×2 (12:50→14:34)
[2019-08-01] MEDS ORDERED: DIATRIZOATE MEGL/DIATRIZOA SOD 30 ML BTL PO ONE (13:10)
[2019-08-01] MEDS ORDERED: PIPER-TAZ 3.375 GM 50 ML IV ONE (13:30)
[2019-08-01] MEDS ORDERED: ONDANSETRON HCL INJ 2MG/ML 2ML 2 MG/ML VIAL IV ONE (13:30)
[2019-08-01 13:31] LABS: BASOPHILS # (AUTO) 0.1 (0.0-0.1); BASOPHILS % 0.9 % (0.0-1.0); EOSINOPHILS # (AUTO) 0.4 (0.0-0.4); EOSINOPHILS % 6.2 % (0.0-6.0); HEMOGLOBIN 12.3 g/dL (12.0-16.0); LYMPHOCYTES # (AUTO) 1.9 (1.0-3.2); LYMPHOCYTES % 28.5 % (18.0-39.1); MEAN CORPUSCULAR HEMOGLOBIN 26.2 pg (28-32); MEAN CORPUSCULAR HGB CONC 31.5 g/dL (31-35); MEAN CORPUSCULAR VOLUME 83.2 fL (81-99); MONOCYTES # (AUTO) 0.3 (0.2-0.8); MONOCYTES % 4.3 % (4.4-11.3); NEUTROPHILS # (AUTO) 3.9 (2.1-6.9); NEUTROPHILS % 59.6 % (38.7-80.0); PLATELET COUNT 269 x10e3/uL (140-360); RED BLOOD COUNT 4.69 x10e6/uL (3.6-5.1); RED CELL DISTRIBUTION WIDTH 14.4 % (11.7-14.4)
[2019-08-01 14:00] LABS: ALANINE AMINOTRANSFERASE 28 IU/L (0-55); ALBUMIN/GLOBULIN RATIO 1.3 (0.8-2.0); ALKALINE PHOSPHATASE 146 IU/L (40-150); AMYLASE 84 U/L (25-125); ANION GAP 15.8 mmol/L (8-16); BLOOD UREA NITROGEN 21 mg/dL (7-26); BUN/CREATININE RATIO 26 (6-25); CALCIUM 9.5 mg/dL (8.4-10.2); CARBON DIOXIDE 23 mmol/L (22-29); CHLORIDE 101 mmol/L (98-107); EST GLOMERULAR FILTRATION RATE > 60 ML/MIN (60-); GLUCOSE 83 mg/dL (74-118); LIPASE 81 U/L (8-78); POTASSIUM 3.8 mmol/L (3.5-5.1); SODIUM 136 mmol/L (136-145)
[2019-08-01] MEDS ORDERED: MORPHINE SULFATE 2 MG/ML SYR 1ML IV ONE (14:00)
[2019-08-01 14:07] LABS: BILIRUBIN,URINE NEGATIVE (NEGATIVE); CLARITY,URINE CLEAR (CLEAR); COLOR,URINE YELLOW (YELLOW); KETONES,URINE NEGATIVE (NEGATIVE); LEUKOCYTE ESTERASE ,URINE NEGATIVE (NEGATIVE); NITRITE,URINE NEGATIVE (NEGATIVE); PROTEIN,URINE DIPSTICK NEGATIVE (NEGATIVE); URINE UROBILINOGEN 0.2 mg/dL (0.2 - 1)
[2019-08-01 14:14] LABS: BACTERIA,URINE MODERATE /HPF; EPITHELIAL CELLS,URINE MODERATE /LPF; TRANSITIONAL EPI CELLS,URINE FEW
--- NOTE | 2019-08-01 16:20 | Diagnostic Imaging Report ---
EXAM: CT Abdomen and Pelvis WITH intravenous contrast INDICATION: Abdominal pain COMPARISON: CT abdomen pelvis of 02/25/2019 TECHNIQUE: Abdomen and pelvis were scanned utilizing a multidetector helical scanner from the lung base to the pubic symphysis after administration of IV contrast. Coronal and sagittal reformations were obtained. Routine protocol was performed. Scan was performed during portal venous phase. IV CONTRAST: 100mL of Isovue 370 ORAL CONTRAST: Gastrografin RADIATION DOSE: Total DLP: 672.9 mGy*cm Dose modulation, iterative reconstruction, and/or weight based adjustment of the mA/kV was utilized to reduce the radiation dose to as low as reasonably achievable. FINDINGS: LOWER THORAX: Normal. HEPATOBILIARY: No focal liver lesion. No biliary ductal dilation. Status post cholecystectomy. SPLEEN: No splenomegaly. PANCREAS: No focal masses or ductal dilatation. ADRENALS: No adrenal nodules. KIDNEYS/URETERS: Redemonstration of horseshoe kidney. No renal calculi, hydronephrosis, or solid mass lesion. PELVIC ORGANS/BLADDER: Unremarkable. PERITONEUM / RETROPERITONEUM: No free air or fluid. LYMPH NODES: No lymphadenopathy. VESSELS: Unremarkable. GI TRACT: Status post Ivan-en-Y gastric bypass surgery. No abnormal bowel thickening. There is a dilated loop of small bowel with air-fluid level in the left upper abdomen measuring up to 5.8 cm just proximal to the jejunojejunostomy. No evidence of diverticulitis. BONES AND SOFT TISSUES: No acute osseous injury. No suspicious lytic or blastic lesions. Degenerative changes of the visualized spine, most notably at L4-5. IMPRESSION: Status post Ivan-en-Y gastric bypass surgery. Just proximal to the jejunojejunostomy, there is a dilated loop of small bowel in the left upper abdomen with an air-fluid level which measures up to 5.8 cm. As there is successful passage of contrast material beyond this point, this may represent partial small bowel obstruction. Signed by: Kyle Mcgee MD on 08/01/2019 4:17 PM
[2019-08-01] MEDS ORDERED: MORPHINE SULFATE 2 MG/ML SYR 1ML IV PRN (17:45)
[2019-08-01] MEDS ORDERED: ONDANSETRON HCL INJ 2MG/ML 2ML 2 MG/ML VIAL IV PRN (17:45)
[2019-08-01] MEDS ORDERED: SODIUM CHLORIDE 0.9% 50ML 50 ML ONE (18:01)
[2019-08-01] MEDS ORDERED: IOPAMIDOL 370 MG/ML 200 ML INFUS..BTL INJ ONE (18:01)
[2019-08-01] MEDS: SODIUM CHLORIDE 0.9% 1000ML 1,000 ML IV SCH (18:09)
[2019-08-01] MEDS ORDERED: HYDRALAZINE HCL 20 MG/ML VIAL IV PRN (19:45)
[2019-08-01] MEDS ORDERED: ACETAMINOPHEN 325 MG TAB PO PRN (19:45)
[2019-08-01] MEDS ORDERED: ACETAMINOPHEN 650 MG SUPP PR PRN (21:30)
--- NOTE | 2019-08-01 21:30 | NUR ---
SPOKE WITH [place] MUELLER NP REGARDING PT'S BP. SHACTOR SPOKE WITH PT STATING HER BP IS "NORMALLY LOW". PT STATES SYSTOLIC BP IS "USUALLY 90'S-LOW 100'S" AND DIASTOL BP "50'S TO 60'S".
[2019-08-01] MEDS: FAMOTIDINE 20 MG/2 ML VIAL IV SCH (22:30)
[2019-08-01 23:31] VITALS: BP 100/66
[2019-08-01 23:57] VITALS: BP 100/66
[2019-08-02] VITALS (7 sets, daily range): BP systolic 85–102; BP diastolic 53–59
[2019-08-02] MEDS: SODIUM CHLORIDE 0.9% 1000ML 1,000 ML IV SCH ×2 (02:28→14:27)
[2019-08-02 04:24] LABS: EOSINOPHILS # (AUTO) 0.3 (0.0-0.4); EOSINOPHILS % 7.1 % (0.0-6.0); HEMATOCRIT 33.6 % (34.2-44.1); HEMOGLOBIN 10.7 g/dL (12.0-16.0); LYMPHOCYTES # (AUTO) 1.5 (1.0-3.2); MEAN CORPUSCULAR HEMOGLOBIN 25.9 pg (28-32); MEAN CORPUSCULAR HGB CONC 31.8 g/dL (31-35); MEAN CORPUSCULAR VOLUME 81.4 fL (81-99); MONOCYTES # (AUTO) 0.3 (0.2-0.8); MONOCYTES % 6.6 % (4.4-11.3); NEUTROPHILS # (AUTO) 1.9 (2.1-6.9); PLATELET COUNT 205 x10e3/uL (140-360); RED BLOOD COUNT 4.13 x10e6/uL (3.6-5.1); RED CELL DISTRIBUTION WIDTH 14.4 % (11.7-14.4)
[2019-08-02 04:35] LABS: MAGNESIUM 1.7 MG/DL (1.3-2.1); PHOSPHORUS 4.2 MG/DL (2.3-4.7)
[2019-08-02] MEDS: FAMOTIDINE 20 MG/2 ML VIAL IV SCH ×2 (05:41→17:16)
[2019-08-02 06:31] LABS: ALANINE AMINOTRANSFERASE 21 IU/L (0-55); ALBUMIN/GLOBULIN RATIO 1.3 (0.8-2.0); ALKALINE PHOSPHATASE 116 IU/L (40-150); BLOOD UREA NITROGEN 13 mg/dL (7-26); BUN/CREATININE RATIO 20 (6-25); CALCIUM 8.6 mg/dL (8.4-10.2); CARBON DIOXIDE 20 mmol/L (22-29); CHLORIDE 114 mmol/L (98-107); CREATININE, SERUM 0.66 mg/dL (0.57-1.11); EST GLOMERULAR FILTRATION RATE > 60 ML/MIN (60-); GLUCOSE 90 mg/dL (74-118); LIPASE 56 U/L (8-78); SODIUM 142 mmol/L (136-145)
[2019-08-02 06:35] LABS: ALBUMIN 3.1 g/dL (3.5-5.0)
--- NOTE | 2019-08-02 06:53 | Diagnostic Imaging Report ---
Abdomen/KUB INDICATION: Abdominal pain ^f/u sbo ^[id number] ^[id number] COMPARISON: None. FINDINGS: Medical Devices: Cholecystectomy clips Bowel: Enteric contrast throughout the transverse colon. Little small bowel air. No dilated bowel loops Free air: Normal. Abdominal calcifications: None Organomegaly: None Other: Excreted contrast into the collecting system of a horseshoe kidney and urinary bladder. Bones: Unremarkable IMPRESSION: Enteric contrast in the transverse colon. No dilated small bowel to suggest obstruction. Signed by: Dr. Ria Norman MD on 08/02/2019 6:50 AM
--- NOTE | 2019-08-02 07:10 | NUR ---
dung endorsed to next shift for continuity of care. Dr. Meadows aware of consult, patient is npo.
[2019-08-02] MEDS ORDERED: DEXTROSE 50% SYRINGE 50 ML IV PRN (07:15)
[2019-08-02] MEDS: INSULIN LISPRO 100 UNIT/1 ML 3ML VIAL SQ SCH ×4 (07:30→20:19)
--- NOTE | 2019-08-02 07:52 | NUR ---
The pt. received form th off-going nurse in stable condition . No comp of pain at this time. Sdie rails are elevated times 2 and call system is within reach.
[2019-08-02] MEDS: HYDROCODONE/APAP 5MG-325MG TAB PO PRN ×3 (09:45→20:46)
--- NOTE | 2019-08-02 17:40 | NUR ---
Nutrition Intervention Note RD Recommendation(s) for Physician: -Recommend to continue current diet as tolerated -Glucerna nutrition supplement daily Plan of Care: RD following, monitoring for tolerance and adequacy Nutrition reason for involvement: Nutrition Risk Score - MST 4 RD Assessment (08/02/19) Pt was admitted with a partial bowel obstruction. At time of visit, pt was on a full liquid diet and is now on a regular diet. Pt reports eating <50% of meals for 3 days prior to admission and is currently experiencing abdominal pain. No weight loss reported and pt was unsure of her usual wt. No N/V, but pt reports some diarrhea. Pt was interested in receiving a nutrition supplement daily. Will continue to monitor. Principal Problems/Diagnoses: partial bowel obstruction PMH: anemia, type 2 DM, bipolar, depression, arthritis, and IBS Skin: intact Labs: Reviewed Meds: pepcid, NaCl, insulin, hydralazine, zofran Ht: 60 inches Wt: 198 lbs BMI: 38.7 kg/m2 IBW: 100 lbs Malnutrition Evaluation (08/01/2019) The patient does not meet criteria for a specified degree of malnutrition at this time. Will re-evaluate at follow-up as appropriate. Nutrition Prescription (Diet Order): Regular diet Estimated Nutritional Needs: 1000- 1136 calories/day (22-25 kcal/kg IBW) 68-91 g protein/day (1.5-2 g pro/kg IBW) Diet Adequacy: Not meeting calorie needs, Not meeting protein needs Tolerance: Pt reported abdominal pain at time of visit Diet Education Needs Assessment: Diet education not indicated. Nutrition Care Level: low Nutrition Diagnosis: Inadequate energy intake related decreased ability to consume sufficient energy secondary to decreased appetite as evidenced by pt eating <50% of meals prior to admission. Goal: Patient will meet 75-100% of estimated needs by follow up Progress: N/A Interventions: -general-healthful diet, Commercial beverage Monitoring/Evaluation: -Total energy intake, Total protein intake, Modified diet, Liquid supplement, Weight change Signed: Elaina Roe RD, LD
--- NOTE | 2019-08-02 18:05 | NUR ---
The pt. consumed her full meal for dinner and has had moderate amt brown soft particulate stool.
--- NOTE | 2019-08-02 19:10 | NUR ---
RECEIVED PATIENT IN REPORT.AAOX3.PAIN VOICED 10/10.NO VOMITING.BED ALARM ON.BED LOCKED AND IN LOWEST POSITION.PHONE AND CALL LIGHT WITHIN REACH.INSTRUCTED TO CALL FOR ASSISTANCE NEEDED.
--- NOTE | 2019-08-02 19:35 | Diagnostic Imaging Report ---
Exam: Abdominal film Clinical History: Follow-up obstruction Comparison: None. DISCUSSION: Contrast within the colon. No dilated bowel. IMPRESSION: Nonobstructive bowel gas pattern. Signed by: Dr. Favio Olmstead M.D. on 08/02/2019 7:32 PM
--- NOTE | 2019-08-02 21:00 | NUR ---
PATIENT STATED THAT "PAIN HAS INCREASED AFTER DINNER."PROVIDED PUDDING AND JELLO.TOLERATE WELL.
[2019-08-03 00:07] VITALS: BP 91/49
--- NOTE | 2019-08-03 02:42 | NUR ---
IS DOING ROUNDS.CHANGED TO FULL LIQUID DIET.
[2019-08-03] MEDS: HYDROCODONE/APAP 5MG-325MG TAB PO PRN (03:29)
--- NOTE | 2019-08-03 04:00 | NUR ---
NEW IV STARTED TO RIGHT HAND#20.PATENT.BLOOD AMELIE AND SENT TO THE LAB.PATIENT TOLERATED WELL.
[2019-08-03 04:07] VITALS: BP 90/55
[2019-08-03] MEDS: PANTOPRAZOLE 40 MG 10ML VIAL IV SCH ×2 (04:21→08:48)
[2019-08-03 04:24] LABS: BASOPHILS % 1.1 % (0.0-1.0); EOSINOPHILS # (AUTO) 0.3 (0.0-0.4); EOSINOPHILS % 9.1 % (0.0-6.0); HEMATOCRIT 33.5 % (34.2-44.1); HEMOGLOBIN 10.3 g/dL (12.0-16.0); LYMPHOCYTES # (AUTO) 1.6 (1.0-3.2); LYMPHOCYTES % 44.3 % (18.0-39.1); MEAN CORPUSCULAR HEMOGLOBIN 25.8 pg (28-32); MEAN CORPUSCULAR HGB CONC 30.7 g/dL (31-35); MEAN CORPUSCULAR VOLUME 83.8 fL (81-99); MONOCYTES # (AUTO) 0.2 (0.2-0.8); MONOCYTES % 5.8 % (4.4-11.3); NEUTROPHILS # (AUTO) 1.4 (2.1-6.9); NEUTROPHILS % 39.4 % (38.7-80.0); PLATELET COUNT 158 x10e3/uL (140-360); RED CELL DISTRIBUTION WIDTH 14.5 % (11.7-14.4)
[2019-08-03 04:42] LABS: ANION GAP 9.7 mmol/L (8-16); BLOOD UREA NITROGEN 8 mg/dL (7-26); BUN/CREATININE RATIO 12 (6-25); CALCIUM 8.7 mg/dL (8.4-10.2); CARBON DIOXIDE 23 mmol/L (22-29); CHLORIDE 113 mmol/L (98-107); CREATININE, SERUM 0.69 mg/dL (0.57-1.11); EST GLOMERULAR FILTRATION RATE > 60 ML/MIN (60-); GLUCOSE 87 mg/dL (74-118); MAGNESIUM 1.8 MG/DL (1.3-2.1); POTASSIUM 3.7 mmol/L (3.5-5.1); SODIUM 142 mmol/L (136-145)
[2019-08-03] MEDS ORDERED: LEVOFLOXACIN 500MG/D5W 100ML 100 ML IV SCH (05:00)
[2019-08-03] MEDS ORDERED: METRONIDAZOLE 500MG/NS 100ML 100 ML IV SCH (06:00)
--- NOTE | 2019-08-03 06:30 | NUR ---
PATIENT OFF THE UNIT FOR KUB X RAY.
--- NOTE | 2019-08-03 06:37 | NUR ---
PT IS BACK TO UNIT AFTER X RAY.
--- NOTE | 2019-08-03 06:59 | NUR ---
BED SIDE SHIFT REPORT GIVEN TO ONCOMING RN.STABLE CONDITION.
--- NOTE | 2019-08-03 07:14 | NUR ---
The pt. was received in bed awake and alert. She denies pain or discomfort at this time. She is pending transfusion of 2 units of p rbc's. Addendum: 08/03/19 at 0717 by Angie Joshi RN This note is entered in the wrong chart.
--- NOTE | 2019-08-03 07:17 | NUR ---
The pt. is sleeping at bedside rounding and has recently been given pain med.
[2019-08-03] MEDS: INSULIN LISPRO 100 UNIT/1 ML 3ML VIAL SQ SCH (07:30)
[2019-08-03 07:43] VITALS: BP 95/53
--- NOTE | 2019-08-03 07:48 | Diagnostic Imaging Report ---
Exam: Abdominal film Clinical History: Follow-up obstruction Comparison: 08/02/2019 DISCUSSION: Contrast within the colon. No dilated bowel. Right upper quadrant clips. IMPRESSION: Nonobstructive bowel gas pattern. Signed by: Dr. Favio Olmstead M.D. on 08/03/2019 7:45 AM
[2019-08-03 07:59] VITALS: BP 95/53
[2019-08-03] MEDS ORDERED: FLAGYL500 MG PO (09:29)
[2019-08-03] MEDS ORDERED: DICYCLOMINE HCL10 MG PO (09:29)
[2019-08-03] MEDS ORDERED: CIPRO500 MG PO (09:29)
[2019-08-03] MEDS ORDERED: PANTOPRAZOLE SO40 MG PO (09:30)
--- NOTE | 2019-08-03 11:10 | NUR ---
The pt. has discharged home with script and follow up instructions.
--- NOTE | 2019-08-04 03:01 | Discharge Summary ---
ADMISSION DIAGNOSES: Partial small bowel obstruction, type 2 diabetes, and bipolar depression. DISCHARGE DIAGNOSES: History of diverticulitis, type 2 diabetes, microcytic anemia, bipolar depression, arthritis, irritable bowel syndrome, hypotension with the blood pressure usually running 70 to 100. SURGICAL HISTORY: Lumbar laminectomy, gastric bypass, cholecystectomy, . FAMILY HISTORY: The patient's dad had a heart attack. SOCIAL HISTORY: Noncontributory. HOSPITAL COURSE: A 53-year-old female admits with complaints of three-day history of intolerance of diet due to abdominal pain and nausea. On admission, lipase was elevated at 81. CT of the abdomen and pelvis showed a dilated loop of small bowel in the left upper abdomen with air-fluid level, which measures at 5.8 cm. Followup KUB was negative. Blood culture was negative. Lipase trended down after getting IV fluids. Diet was advanced and the patient tolerated diet. Per GI for possible early diverticulitis, the patient was started on IV antibiotics. She will discharge home with Cipro, Flagyl, Bentyl, and Protonix. The patient understands discharge instructions and agrees with the plan. She will follow up with primary care in one to two weeks. Dictated by Ivanna Leary NP MD [facility] /[id number]
== END 2019-08-03 11:07 | disposition home or self-care (01) ==
LOC: ER 12:33 → INTOOBSV 17:39 → ERHOLD 17:39 → MED/SURG 23:19
PROVIDERS: ADMIT Internal Medicine; ATTEND Internal Medicine
DX: K57.92 Diverticulitis of intestine, part unspecified, without perforation or abscess without bleeding (principal); E11.9 Type 2 diabetes mellitus without complications; D64.9 Anemia, unspecified; D50.9 Iron deficiency anemia, unspecified; F31.9 Bipolar disorder, unspecified; M19.90 Unspecified osteoarthritis, unspecified site; G89.29 Other chronic pain; K58.0 Irritable bowel syndrome with diarrhea; K85.90 Acute pancreatitis without necrosis or infection, unspecified; Z98.84 Bariatric surgery status; K21.9 Gastro-esophageal reflux disease without esophagitis; E78.5 Hyperlipidemia, unspecified; Z90.49 Acquired absence of other specified parts of digestive tract; Z82.49 Family history of ischemic heart disease and other diseases of the circulatory system; Z79.84 Long term (current) use of oral hypoglycemic drugs
CPT/HCPCS: 36415 ×3; 74018 ×2; 74177; 80048; 80053 ×2; 81001; 82150; 82948 ×2; 83605; 83690 ×3; 83735 ×2; 84100; 85025 ×3; 87040; 97116; 97161; 99284; C9113; G0378 ×3; J1956; J2270; J2405; J2543; J7030 ×2; Q9967

== ENCOUNTER → 2019-10-23 | Day surgery (SDC) | payer BC ==
[~2019-10-23] MED LIST changes: +ATORVASTATIN CA10 MG PO; +CIPRO500 MG PO; +DICYCLOMINE HCL10 MG PO; +EFFEXOR XR 3737.5 MG PO; +GLUCAGON FOR INJ 1 MG VIAL ONE; +HYOSCYAMINE 0.125 MG TAB ONE; +MIDAZOLAM HCL 2 MG/2 ML VIAL ONE; +PANTOPRAZOLE SO40 MG PO; +PROPOFOL IV EMULSION 10 MG/ML 20 ML VIAL ONE; +ULTRAM50 MG PO
[2019-10-23 09:35] VITALS: BP 99/67
[2019-10-23 10:51] LABS: FREE THYROXINE INDEX 2.3262 (1.4-3.8); THYROID STIMULATING HORMONE 1.55 uIU/mL (0.350-4.940)
--- NOTE | 2019-10-23 11:05 | Operative Report ---
DATE OF PROCEDURE: 10/23/2019 SURGEON: Dusty Meadows MD PROCEDURE: Colonoscopy with polypectomy note. INDICATION FOR COLONOSCOPY: Left-sided abdominal pain, constipation, history of bright red blood per rectum. MEDICATIONS: The patient was done under MAC, please see anesthesiologist's note. PROCEDURE IN DETAIL: With the patient in the left lateral decubitus position, a flexible fiberoptic Olympus colonoscope was inserted into the rectum with ease and advanced all the way to the cecum. Mucosa overlying the cecum appeared to be within normal limits. A minute polyp was noted in the distal ascending colon that was removed per cold biopsy forceps. Transverse and descending appeared to be within normal limits. Diverticular disease was noted to involve the sigmoid colon. The rectum appeared to be within normal limits. The scope was then retroflexed into the distal rectum and small internal hemorrhoids were noted, none of which were actively bleeding. The scope was then straightened out, it was subsequently withdrawn. The patient tolerated the procedure well. IMPRESSION: 1. Ascending colon polyp, minute, removed per cold biopsy forceps. 2. Diverticulosis. 3. Internal hemorrhoids, none actively bleeding. PLAN: 1. Follow up histology. 2. Initiate high-fiber, low-fat diet. 3. Initiate high-fiber supplement. 4. Start VSL #3 one p.o. b.i.d. 5. A followup colonoscopy in 3 to 5 years. Dusty Meadows MD [facility] [place] /[id number] cc: Raymundo Hardin
== END | disposition home or self-care (01) ==
LOC: OR 06:02
PROVIDERS: ATTEND Internal Medicine Gastroenterology
DX: K57.92 Diverticulitis of intestine, part unspecified, without perforation or abscess without bleeding (principal); K63.5 Polyp of colon; K59.00 Constipation, unspecified; K58.9 Irritable bowel syndrome, unspecified; K64.8 Other hemorrhoids; K21.9 Gastro-esophageal reflux disease without esophagitis; G47.33 Obstructive sleep apnea (adult) (pediatric); E11.9 Type 2 diabetes mellitus without complications; R00.1 Bradycardia, unspecified; F41.9 Anxiety disorder, unspecified; F31.9 Bipolar disorder, unspecified; Z79.84 Long term (current) use of oral hypoglycemic drugs; Z98.84 Bariatric surgery status; Z87.891 Personal history of nicotine dependence
CPT/HCPCS: 36415; 45380; 82948; 84436; 84443; 84479; 93005; J1610; J2250; J2704; 45378